=== PATIENT | male | born 1955 | race Caucasian/White ===

== ENCOUNTER 2017-06-09 16:51 | Inpatient (IN) | payer OTHER ==
[~2017-06-09] VITALS: Ht 175.2 cm; Wt 102.3 kg
--- NOTE | ~2017-06-09 | WRIGHTHP ---
[place], [place] PATIENT HISTORY AND PHYSICAL EXAM NAME: AUBREY YOU [facility] #: [id number] UNIT #: [id number] ROOM: 407 DOCTOR: BLAIR OLIVO MD BIRTHDATE: [birth year] DOS: 06/09/2017 HISTORY OF PRESENT ILLNESS: The patient is a 61-year-old gentleman with past medical history of: 1. COPD. 2. Benign essential hypertension. 3. POLLEN allergies. 4. Generalized anxiety disorder. 5. History of smoking 60 pack years. 6. Coronary artery disease of the [place] vessels with acute MD in March 2009. 7. GERD and esophagitis. 8. History of major depression, chronic, recurrent. The patient presented to the Emergency Department with increasing shortness of breath, cough, chest congestion, wheezing. In the ER, the patient was found to have acute exacerbation of COPD and was recommended for admission and further management. After admission, the patient says his breathing is improving with present treatment, but he still has persistent cough. REVIEW OF SYSTEMS: LUNGS: Increased shortness of breath, wheezing and cough. HEART SYSTEM: No chest pain. No palpitations. GASTROINTESTINAL: No nausea, vomiting, diarrhea or constipation. FAMILY HISTORY: Noncontributory. HOME MEDICATIONS: Loratadine, vitamin D, buspirone, Colace, verapamil. ALLERGIES: No known drug allergies. PHYSICAL EXAMINATION: GENERAL: Alert, oriented x 3, in no visible distress. HEENT AND NECK: Extraocular movements are intact. Sclerae are anicteric. Oral mucosa is moist and clean. No obvious facial weakness. Neck is supple without any lymphadenopathy. No thyromegaly. No JVD. No carotid arterial bruits. LUNGS: Decreased breath sounds all over, slight expiratory wheezing. CARDIOVASCULAR SYSTEM: Heart rate is regular in rate and rhythm. S1 and S2 normally audible. No significant murmur or any other abnormal cardiac sounds. ABDOMEN: Soft, nontender. No obvious organomegaly. Bowel sounds are present. No obvious herniation. EXTREMITIES: Without significant cyanosis or edema. Warm to touch. CENTRAL NERVOUS SYSTEM: Alert and oriented x 3. Cranial nerves II-XII are intact. Speech is normal. The patient is able to move all extremities. Normal muscle strength. Deep tendon reflexes are equal on both sides. Plantars were downgoing. LABORATORY DATA: White cell count of 3200, otherwise normal CBC and platelets. Normal bilirubin, liver enzymes. Chest x-ray without any acute abnormality. [place], [place] PATIENT HISTORY AND PHYSICAL EXAM [facility] [id number] UNIT #: [id number] ROOM: 407 DOCTOR: BLAIR OLIVO MD BIRTHDATE: [birth year] IMPRESSION AND PLAN: 1. The patient with acute exacerbation of significant underlying chronic obstructive pulmonary disease, to be treated with bronchodilators, oxygen, corticosteroids. The patient's breathing is already improving. He still has significant cough. 2. Generalized anxiety disorder, treated with buspirone. 3. Major depression, recurrent, mild, treated and controlled. 4. Benign essential hypertension, treated and controlled. 5. POLLEN allergies, treated with loratadine. 6. Chronic constipation, treated with Colace. BLAIR OLIVO MD CM:HISPHYS:PATIENT HISTORY AND PHYSICAL EXAMINATION 22 99 BLAIR OLIVO MD 06/10/171958 interface
--- NOTE | ~2017-06-09 | DS ---
[place], [place] DISCHARGE SUMMARY NAME: AUBREY YOU UNIT #: [id number] ROOM: 407 DOCTOR: BLAIR OLIVO MD BIRTHDATE: [birth year] DOS: 06/11/2017 DISCHARGE DIAGNOSES: 1. Acute exacerbation of chronic obstructive pulmonary disease, improved with treatment. 2. Generalized anxiety disorder. 3. Major depression, recurrent, mild. 4. Benign essential hypertension. 5. Pollen allergies. 6. Chronic constipation. 7. Gastroesophageal reflux disease and esophagitis. 8. History of coronary artery disease of [place] vessels with history of acute myocardial infarction in 03/2009. 9. History of smoking 60 pack years in the past. 10. Benign essential hypertension. HOSPITAL COURSE: 1. The patient presented to the Emergency Department at [facility] with increasing shortness of breath, chest congestion, cough and wheezing and he was found to have acute exacerbation of COPD and tachypnea and he was admitted and treated with corticosteroids, oxygen, antibiotics and DuoNeb. The patient's breathing has improved and he is doing well and will be discharged to home today. The patient's pulse oximetry was monitored. His breathing rate has improved and he is not wheezing anymore. The patient is being discharged to home on Medrol Dosepak. 2. Chronic constipation, treated with Colace. The patient is moving his bowels. 3. Benign essential hypertension, treated and controlled. 4. Major depression, recurrent, mild, is well controlled. He does not feel depressed. 5. Generalized anxiety disorder for which he takes buspirone as needed, well controlled. LABORATORY DATA: Blood cultures negative. CBC normal, PT, PTT baseline. DISCHARGE MANAGEMENT: Verapamil extended release 360 mg a day, loratadine 10 mg a day, Medrol Dosepak, Colace 200 mg at bedtime, Cymbalta twice a day, buspirone 5 mg t.i.d. p.r.n. for anxiety. [place], [place] DISCHARGE SUMMARY NAME: AUBREY YOU UNIT #: [id number] ROOM: 407 DOCTOR: BLAIR OLIVO MD BIRTHDATE: [birth year] BLAIR OLIVO MD CM:HUA [id number] BLAIR OLIVO MD 06/11/17 1723 interface
[~2017-06-09 16:51] MED LIST: AMLODIPINE BESY1 TAB PO; AMLODIPINE5 MG PO; ANAPROX DS550 MG PO; AUGMENTIN 875875 MG PO; BACTRIM DS 8001 TA1 PO; BACTROBAN CREAM15 GM T; BUSPAR15 MG PO; BUSPAR5 MG PO; CLARITIN10 MG PO; CLINDAMYCIN HC300 MG PO; CLONIDINE HCL0.3 MG PO; DAYPRO600 M1 PO; DOK COLACE100 MG PO; DOXYCYCLINE MO100 MG PO; FIORICET 325 MG1 TAB PO; FLEXERIL5 MG PO; Fioricet 325 MG1 TAB PO; HYDROCHLOROTHIAZIDE PO; HYDROCODONE BIT1 T11 PO; INDERAL LA160 MG PO; INDERAL60 MG PO; KEFLEX500 MG PO; LEVOFLOXACIN500 MG PO; LISINOPRIL20 MG PO; MOTRIN600 MG PO; MOTRIN800 MG PO; NKHM; NORVASC10 MG PO; PROPRANOLOL HC160 MG PO; PROPRANOLOL HY160 MG PO; PROPRANOLOL HYD80 M1 PO; PROPRANOLOL PO; ROBAXIN500 MG PO; ROBAXIN750 MG PO; TESSALON PERLE100 M1 PO; TRAMADOL HCL50 MG PO; VERAPAMIL HCL180 M1 PO; VICODIN 5/500 505 MG PO; VITAMIN D32000 UNIT PO
[2017-06-09 16:57] VITALS: BP 154/93
[2017-06-09 17:59] LABS: BASO % 0.7 % (0.0-1.0); EOS # 0.1 10*3/uL (0.0-0.4); EOS % 1.6 % (1.0-4.0); HEMATOCRIT 45.3 % (42.0-52.0); HEMOGLOBIN 15.5 g/dl (14.0-18.0); LYMPH # 1.1 10*3/uL (1.3-4.4); LYMPH % 20.9 % (27.0-41.0); MEAN CELL VOLUME 87.3 fl (80.0-94.0); MEAN CORPUSCULAR HGB 29.9 pg (27.0-31.0); MEAN CORPUSCULAR HGB CONC 34.2 g/dl (33.0-37.0); MEAN PLATELET VOLUME 10.8 fl (9.6-12.3); MONO # 0.6 10*3/uL (0.1-1.0); MONO % 11.7 % (3.0-9.0); NEUT # 3.5 10*3/uL (2.3-7.9); NEUT % 64.7 % (47.0-73.0); PLATELET COUNT AUTOMATED 209 10*3/uL (130-400); RED BLOOD COUNT 5.19 10*6/uL (4.50-5.90); RED CELL DISTRI WIDTH 14.2 % (0-14.5); WHITE BLOOD COUNT 5.5 10*3/uL (4.8-10.8)
[2017-06-09 18:17] LABS: ALKALINE PHOSPHATASE 119 U/L (45-117); BUN 13 mg/dl (7-24); CHLORIDE 102 mmol/L (98-107); CREATININE 1.26 mg/dL (0.70-1.30); POTASSIUM 3.7 mmol/L (3.5-5.1); SGOT/AST 25 IU/L (3-35); SGPT/ALT 26 U/L (12-78); SODIUM 137 mmol/L (136-145); TOTAL PROTEIN 7.7 gm/dL (6.4-8.2)
[2017-06-09 18:21] LABS: TROPONIN I < 0.015 ng/ml (<0.045)
[2017-06-09 18:24] LABS: THYROID STIM HORMONE (HS) 0.991 uIU/ml (0.358-4.75)
[2017-06-09 20:57] VITALS: BP 161/95
[2017-06-09 21:15] VITALS: BP 167/78
[2017-06-10] VITALS: BP 152/70
[2017-06-10 06:50] LABS: BASO % 0.3 % (0.0-1.0); HEMATOCRIT 46.2 % (42.0-52.0); HEMOGLOBIN 15.6 g/dl (14.0-18.0); LYMPH # 0.3 10*3/uL (1.3-4.4); LYMPH % 10.7 % (27.0-41.0); MEAN CELL VOLUME 87.8 fl (80.0-94.0); MEAN CORPUSCULAR HGB 29.7 pg (27.0-31.0); MEAN CORPUSCULAR HGB CONC 33.8 g/dl (33.0-37.0); MEAN PLATELET VOLUME 10.1 fl (9.6-12.3); MONO # 0.1 10*3/uL (0.1-1.0); MONO % 1.6 % (3.0-9.0); NEUT # 2.8 10*3/uL (2.3-7.9); NEUT % 87.1 % (47.0-73.0); PLATELET COUNT AUTOMATED 205 10*3/uL (130-400); RED BLOOD COUNT 5.26 10*6/uL (4.50-5.90); RED CELL DISTRI WIDTH 13.9 % (0-14.5); WHITE BLOOD COUNT 3.2 10*3/uL (4.8-10.8)
[2017-06-10 08:00] VITALS: BP 167/82
[2017-06-10 16:54] VITALS: BP 118/51
[2017-06-10 20:00] VITALS: BP 140/62
[2017-06-11] VITALS: BP 142/56
[2017-06-11 08:00] VITALS: BP 127/71
[2017-06-11] MEDS ORDERED: MEDROL DOSEPAK4 MG PO (15:38)
[2017-06-11] MEDS ORDERED: BREO ELLIPTA 11 EACH INH (16:01)
== END 2017-06-11 15:57 | disposition home or self-care (01) | DRG 191 ==
LOC: ED 16:51 → EDHOLD 18:50 → 4E 19:43
PROVIDERS: Internal Medicine
DX: J44.1 Chronic obstructive pulmonary disease with (acute) exacerbation (principal); F33.0 Major depressive disorder, recurrent, mild; F41.1 Generalized anxiety disorder; I10 Essential (primary) hypertension; K59.09 Other constipation; K21.0 Gastro-esophageal reflux disease with esophagitis; I25.10 Atherosclerotic heart disease of native coronary artery without angina pectoris; Z91.048 Other nonmedicinal substance allergy status; I25.2 Old myocardial infarction; Z87.891 Personal history of nicotine dependence; Z79.899 Other long term (current) drug therapy; Z90.49 Acquired absence of other specified parts of digestive tract; Z82.49 Family history of ischemic heart disease and other diseases of the circulatory system; Z82.3 Family history of stroke

== ENCOUNTER 2017-08-18 09:55 | Emergency (ER) | payer OTHER ==
[~2017-08-18] VITALS: Ht 175.2 cm; Wt 99.8 kg
[~2017-08-18 09:55] MED LIST changes: +BREO ELLIPTA 11 EACH INH; +MEDROL DOSEPAK4 MG PO
[2017-08-18 09:56] VITALS: BP 169/98
[2017-08-18] MEDS ORDERED: NAPROSYN500 MG PO (10:02)
[2017-08-18] MEDS ORDERED: KEFLEX500 M1 PO (10:02)
[2017-08-18] MEDS ORDERED: SEPTDS PO (10:02)
== END 2017-08-18 11:11 | disposition home or self-care (01) ==
LOC: ED 09:55
DX: L03.114 Cellulitis of left upper limb (principal); R03.0 Elevated blood-pressure reading, without diagnosis of hypertension; Z79.899 Other long term (current) drug therapy

== ENCOUNTER 2017-10-12 09:45 | Emergency (ER) | payer OTHER ==
[~2017-10-12] VITALS: Wt 99.8 kg
[~2017-10-12 09:45] MED LIST changes: +KEFLEX500 M1 PO; +NAPROSYN500 MG PO; +SEPTDS PO
[2017-10-12 10:01] VITALS: BP 150/90
[2017-10-12] MEDS ORDERED: VIBRAMYCIN100 MG PO (10:03)
[2017-10-12] MEDS ORDERED: IBUPROFEN600 MG PO (10:03)
[2018-01-09] MEDS ORDERED: NAPROSYN500 MG PO (05:52)
== END 2017-10-12 10:09 | disposition home or self-care (01) ==
LOC: ED 09:45
DX: L02.212 Cutaneous abscess of back [any part, except buttock and flank] (principal); L03.312 Cellulitis of back [any part except buttock and flank]

== ENCOUNTER 2017-12-03 16:40 | Inpatient (IN) | payer OTHER ==
[~2017-12-03] VITALS: Ht 175.3 cm; Wt 96.6 kg
--- NOTE | ~2017-12-03 | EKG ---
[place], [place] ELECTROCARDIOGRAM REPORT NAME: AUBREY YOU UNIT #: [id number] ROOM: [facility] DOCTOR: CASE DRAFT REPORT BIRTHDATE: [birth year] [facility] Test Date: 2017-12-03 Test Time: 22:39:58 Pat Name: AUBREY YOU Department: Room: [facility] Gender: M Band Lining Bander: Aurea Cunningham : 1955 Requested By: IRIS MANCILLA Order Number: [id number] Reading MD: Durga Abdalla MD Measurements Intervals [place] Rate: 87 P: 51 RI: 166 QRS: 47 QRSD: 101 T: 46 QT: 403 QTc: 485 Interpretive Statements Sinus rhythm Minimal ST elevation, anterior leads Borderline prolonged QT interval Electronically Signed On 12-04-2017 8:06:39 PDT by Durga Abdalla MD CM:EKGRPT:ELECTROCARDIOGRAM REPORT [id number] IRIS WILLOUGHBY DRAFT REPORT IRIS MANCILLA MD
--- NOTE | ~2017-12-03 | EKG ---
[place], [place] ELECTROCARDIOGRAM REPORT NAME: AUBREY YOU UNIT #: [id number] ROOM: [facility] DOCTOR: CASE DRAFT REPORT BIRTHDATE: [birth year] [facility] Test Date: 2017-12-03 Test Time: 16:44:00 Pat Name: AUBREY YOU Department: Room: [facility] Gender: M City Wellness Coordinator: Rosalba Acevedo : 1955 Requested By: IRIS MANCILLA Order Number: [id number] Reading MD: Durga Abdalla MD Measurements Intervals [place] Rate: 109 P: 56 [place]: 156 QRS: 56 QRSD: 97 T: 58 QT: 360 QTc: 485 Interpretive Statements Sinus tachycardia Borderline prolonged QT interval Electronically Signed On 12-04-2017 8:05:45 PDT by Durga Abdalla MD CM:EKGRPT:ELECTROCARDIOGRAM REPORT [id number] IRIS WILLOUGHBY DRAFT REPORT IRIS MANCILLA MD
--- NOTE | ~2017-12-03 | EKG ---
[place], [place] ELECTROCARDIOGRAM REPORT NAME: AUBREY YOU UNIT #: [id number] ROOM: [facility] DOCTOR: CASE DRAFT REPORT BIRTHDATE: [birth year] [facility] Test Date: 2017-12-03 Test Time: 19:49:04 Pat Name: AUBREY YOU Department: Room: 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
--- NOTE | ~2017-12-03 | EKG ---
[place], [place] ELECTROCARDIOGRAM REPORT NAME: AUBREY YOU UNIT #: [id number] ROOM: [facility] DOCTOR: CASE DRAFT REPORT BIRTHDATE: [birth year] [facility] Test Date: 2017-12-04 Test Time: 13:46:33 Pat Name: AUBREY YOU Department: Room: [facility] 1 Gender: M Associate Director Career Services: Nicki Matthew : 1955 Requested By: DONA GOMES Order Number: [id number] Reading MD: George Preston MD Measurements Intervals [place] Rate: 99 P: 49 MD: 166 QRS: 64 QRSD: 99 T: 45 QT: 391 QTc: 502 Interpretive Statements Sinus rhythm Probable left ventricular hypertrophy Prolonged QT interval Baseline wander in lead(s) V2 Compared to ECG 12/03/2017 22:39:58 ST (T wave) deviation still present No significant change Electronically Signed On 12-04-2017 18:47:43 PDT by George Preston MD CM:EKGRPT:ELECTROCARDIOGRAM REPORT [id number] DONA LEONG DRAFT REPORT DONA GOMES DO
[~2017-12-03 16:40] MED LIST changes: +IBUPROFEN600 MG PO; +VIBRAMYCIN100 MG PO
[2017-12-03 16:55] LABS: BASO # 0.1 10*3/uL (0.0-0.1); EOS # 0.2 10*3/uL (0.0-0.4); EOS % 2.7 % (1.0-4.0); HEMATOCRIT 46.1 % (42.0-52.0); HEMOGLOBIN 15.5 g/dl (14.0-18.0); LYMPH # 1.6 10*3/uL (1.3-4.4); LYMPH % 25.3 % (27.0-41.0); MEAN CELL VOLUME 88.8 fl (80.0-94.0); MEAN CORPUSCULAR HGB 29.9 pg (27.0-31.0); MEAN CORPUSCULAR HGB CONC 33.6 g/dl (33.0-37.0); MEAN PLATELET VOLUME 10.8 fl (9.6-12.3); MONO # 0.5 10*3/uL (0.1-1.0); MONO % 8.6 % (3.0-9.0); NEUT # 3.9 10*3/uL (2.3-7.9); NEUT % 61.9 % (47.0-73.0); PLATELET COUNT AUTOMATED 238 10*3/uL (130-400); RED BLOOD COUNT 5.19 10*6/uL (4.50-5.90); RED CELL DISTRI WIDTH 14.4 % (0-14.5); WHITE BLOOD COUNT 6.3 10*3/uL (4.8-10.8)
[2017-12-03 17:00] VITALS: BP 186/98
[2017-12-03 17:05] LABS: ACT PARTIAL THROMBO TIME 25.3 SECONDS (20.8-31.5)
[2017-12-03 17:18] LABS: ALKALINE PHOSPHATASE 103 U/L (45-117); BUN 9 mg/dl (7-24); CHLORIDE 108 mmol/L (98-107); CREATININE 1.16 mg/dL (0.70-1.30); POTASSIUM 4.1 mmol/L (3.5-5.1); SGOT/AST 14 IU/L (3-35); SGPT/ALT 27 U/L (12-78); SODIUM 142 mmol/L (136-145); TOTAL PROTEIN 7.4 gm/dL (6.4-8.2)
[2017-12-03 17:20] LABS: TROPONIN I < 0.015 ng/ml (<0.045)
[2017-12-03 17:22] VITALS: BP 162/99
[2017-12-03 17:35] VITALS: BP 164/97
[2017-12-03 18:10] VITALS: BP 155/97
[2017-12-03] MEDS ORDERED: LIPITOR20 MG PO (18:42)
[2017-12-03] MEDS ORDERED: LISINOPRIL2.5 MG PO (18:44)
[2017-12-03] MEDS ORDERED: ASPIRIN LOW DOS81 MG PO (18:44)
[2017-12-03] MEDS ORDERED: Lopressor25 MG PO (18:45)
[2017-12-03 20:00] VITALS: BP 167/101
[2017-12-04] VITALS: BP 153/92
[2017-12-04 02:59] LABS: BILIRUBIN NEGATIVE (NEGATIVE); BLOOD NEGATIVE (NEGATIVE); CLARITY CLEAR (CLEAR); COLOR YELLOW (YELLOW); GLUCOSE NEGATIVE (NEGATIVE); KETONE NEGATIVE (NEGATIVE); LEUKO ESTERASE NEGATIVE (NEGATIVE); NITRITE NEGATIVE (NEGATIVE); SPECIFIC GRAVITY 1.015 (1.005-1.030); UROBILINOGEN 0.2 E.U./dl (0.2-1.0)
[2017-12-04 03:09] LABS: RBC 0-2 rbc/hpf (0-2); WBC 0-2 wbc/hpf (0-5)
[2017-12-04 06:53] LABS: BASO # 0.1 10*3/uL (0.0-0.1); BASO % 0.9 % (0.0-1.0); EOS # 0.1 10*3/uL (0.0-0.4); EOS % 1.7 % (1.0-4.0); HEMATOCRIT 47.4 % (42.0-52.0); HEMOGLOBIN 15.8 g/dl (14.0-18.0); LYMPH # 1.2 10*3/uL (1.3-4.4); LYMPH % 17.6 % (27.0-41.0); MEAN CELL VOLUME 89.8 fl (80.0-94.0); MEAN CORPUSCULAR HGB 29.9 pg (27.0-31.0); MEAN CORPUSCULAR HGB CONC 33.3 g/dl (33.0-37.0); MEAN PLATELET VOLUME 11.3 fl (9.6-12.3); MONO # 0.5 10*3/uL (0.1-1.0); MONO % 7.6 % (3.0-9.0); NEUT # 4.7 10*3/uL (2.3-7.9); NEUT % 71.9 % (47.0-73.0); PLATELET COUNT AUTOMATED 227 10*3/uL (130-400); RED BLOOD COUNT 5.28 10*6/uL (4.50-5.90); RED CELL DISTRI WIDTH 14.3 % (0-14.5); WHITE BLOOD COUNT 6.6 10*3/uL (4.8-10.8)
[2017-12-04 07:20] LABS: ALBUMIN 3.8 gm/dl (3.1-4.5); BUN 9 mg/dl (7-24); CHLORIDE 108 mmol/L (98-107); HDL CHOLESTEROL 44 mg/dl (40-60); POTASSIUM 3.7 mmol/L (3.5-5.1); SODIUM 140 mmol/L (136-145)
[2017-12-04 07:26] LABS: ALKALINE PHOSPHATASE 109 U/L (45-117); CHOLESTEROL 167 mg/dL (<200); CREATININE 1.02 mg/dL (0.70-1.30); FREE T4 1.01 ng/dl (0.76-1.46); LDL CHOLESTEROL 95 mg/dL (9-159); PHOSPHOROUS 2.7 mg/dL (2.5-4.9); SGOT/AST 15 IU/L (3-35); SGPT/ALT 22 U/L (12-78); TOTAL PROTEIN 7.1 gm/dL (6.4-8.2); TRIGLYCERIDES 138 mg/dl (<150); VLDL CHOLESTEROL 28 mg/dL (6-40)
[2017-12-04 07:39] LABS: VITAMIN D, 25-HYDROXY 36.7 ng/mL (30-100)
[2017-12-04 08:00] VITALS: BP 170/98
[2017-12-04 12:00] VITALS: BP 156/98
[2017-12-04 16:00] VITALS: BP 184/117
[2017-12-04 20:00] VITALS: BP 153/83
[2017-12-05] VITALS: BP 147/80
[2017-12-05 06:18] LABS: BASO # 0.1 10*3/uL (0.0-0.1); BASO % 0.8 % (0.0-1.0); EOS # 0.3 10*3/uL (0.0-0.4); EOS % 4.1 % (1.0-4.0); HEMATOCRIT 46.3 % (42.0-52.0); HEMOGLOBIN 15.3 g/dl (14.0-18.0); LYMPH # 1.1 10*3/uL (1.3-4.4); LYMPH % 18.5 % (27.0-41.0); MEAN CELL VOLUME 90.3 fl (80.0-94.0); MEAN CORPUSCULAR HGB 29.8 pg (27.0-31.0); MEAN PLATELET VOLUME 10.8 fl (9.6-12.3); MONO # 0.5 10*3/uL (0.1-1.0); MONO % 8.3 % (3.0-9.0); NEUT # 4.2 10*3/uL (2.3-7.9); NEUT % 68.1 % (47.0-73.0); PLATELET COUNT AUTOMATED 206 10*3/uL (130-400); RED BLOOD COUNT 5.13 10*6/uL (4.50-5.90); RED CELL DISTRI WIDTH 14.4 % (0-14.5); WHITE BLOOD COUNT 6.1 10*3/uL (4.8-10.8)
[2017-12-05 06:35] LABS: BUN 15 mg/dl (7-24); CHLORIDE 106 mmol/L (98-107); POTASSIUM 4.2 mmol/L (3.5-5.1); SODIUM 140 mmol/L (136-145)
[2017-12-05 08:00] VITALS: BP 140/70; BP 179/103
[2017-12-05 12:59] VITALS: BP 152/88; BP 160/102
[2017-12-05 16:00] VITALS: BP 172/88
[2017-12-05 20:00] VITALS: BP 152/81
[2017-12-06] VITALS: BP 160/87
[2017-12-06 06:27] LABS: BASO # 0.1 10*3/uL (0.0-0.1); BASO % 0.8 % (0.0-1.0); EOS # 0.3 10*3/uL (0.0-0.4); EOS % 3.9 % (1.0-4.0); HEMATOCRIT 44.1 % (42.0-52.0); HEMOGLOBIN 14.5 g/dl (14.0-18.0); LYMPH # 1.3 10*3/uL (1.3-4.4); LYMPH % 19.4 % (27.0-41.0); MEAN CELL VOLUME 89.5 fl (80.0-94.0); MEAN CORPUSCULAR HGB 29.4 pg (27.0-31.0); MEAN CORPUSCULAR HGB CONC 32.9 g/dl (33.0-37.0); MONO # 0.6 10*3/uL (0.1-1.0); MONO % 8.5 % (3.0-9.0); NEUT # 4.3 10*3/uL (2.3-7.9); NEUT % 67.1 % (47.0-73.0); PLATELET COUNT AUTOMATED 210 10*3/uL (130-400); RED BLOOD COUNT 4.93 10*6/uL (4.50-5.90); RED CELL DISTRI WIDTH 14.3 % (0-14.5); WHITE BLOOD COUNT 6.4 10*3/uL (4.8-10.8)
[2017-12-06 06:35] LABS: ALBUMIN 3.3 gm/dl (3.1-4.5); ALKALINE PHOSPHATASE 96 U/L (45-117); BUN 18 mg/dl (7-24); CHLORIDE 109 mmol/L (98-107); POTASSIUM 3.9 mmol/L (3.5-5.1); SGOT/AST 14 IU/L (3-35); SODIUM 143 mmol/L (136-145); TOTAL PROTEIN 6.6 gm/dL (6.4-8.2)
[2017-12-06 06:38] LABS: CREATININE 1.14 mg/dL (0.70-1.30); SGPT/ALT 17 U/L (12-78)
[2017-12-06 13:26] VITALS: BP 159/89
[2017-12-06] MEDS ORDERED: AVPAK AZITHROM250 MG PO (15:37)
[2017-12-06] MEDS ORDERED: MUCINEX ER600 MG PO (15:37)
[2017-12-06] MEDS ORDERED: LISINOPRIL5 MG PO (15:37)
[2017-12-06 16:00] VITALS: BP 170/60
[2018-01-09] MEDS ORDERED: NAPROSYN500 MG PO (05:52)
== END 2017-12-06 17:52 | disposition home or self-care (01) | DRG 871 ==
LOC: ED 16:40 → 5E 17:28 → EDHOLD 17:28 → 5E 17:44
PROVIDERS: Emergency Medicine; Internal Medicine; Student in an Organized Health Care Education/Training Program
DX: A41.9 Sepsis, unspecified organism (principal); J18.1 Lobar pneumonia, unspecified organism; R73.9 Hyperglycemia, unspecified; E83.41 Hypermagnesemia; E80.6 Other disorders of bilirubin metabolism; I25.10 Atherosclerotic heart disease of native coronary artery without angina pectoris; I10 Essential (primary) hypertension; Z90.49 Acquired absence of other specified parts of digestive tract; Z82.49 Family history of ischemic heart disease and other diseases of the circulatory system; Z82.3 Family history of stroke; J44.9 Chronic obstructive pulmonary disease, unspecified; I25.2 Old myocardial infarction; Z87.891 Personal history of nicotine dependence; Z80.3 Family history of malignant neoplasm of breast

== ENCOUNTER → 2018-01-09 | Outpatient (CLI) | payer OTHER ==
[~2018-01-09] MED LIST changes: +ASPIRIN LOW DOS81 MG PO; +AVPAK AZITHROM250 MG PO; +LIPITOR20 MG PO; +LISINOPRIL2.5 MG PO; +LISINOPRIL5 MG PO; +Lopressor25 MG PO; +MUCINEX ER600 MG PO
--- NOTE | ~2018-01-09 | ST ---
[place], [place] EXERCISE STRESS TEST REPORT [id number] UN[facility] #: [id number] ROOM: DOCTOR: MILTON AGUIRRE MD BIRTHDATE: [birth year] DOS: 01/09/2018 LEXISCAN PORTION OF THE LEXISCAN CARDIOLITE A 0.4 mg Lexiscan, duration of 10 seconds. Baseline cardiogram sinus rhythm with nonspecific ST-T changes. Lexiscan, the patient had no chest discomfort. Blood pressure and heart rate response was normal. Nuclear images will be reported separately. MILTON AGUIRRE MD CM:STRESS:EXERCISE STRESS TEST REPORT [id number] MILTON AGUIRRE MD
== END | disposition home or self-care (01) ==
LOC: CARD 05:34
DX: I20.9 Angina pectoris, unspecified (principal)

== ENCOUNTER → 2019-02-26 | Outpatient (CLI) | payer OTHER ==
[~2019-02-26] MED LIST changes: +ATORVASTATIN CA20 M1 PO; +CYCLOBENZAPRINE10 MG PO; +HYDR25T PO; +LEXAPRO20 MG PO; +ZESTRIL40 MG PO
[2019-02-26 14:45] LABS: BASO # 0.1 10*3/uL (0.0-0.1); BASO % 1.1 % (0.0-1.0); EOS # 0.1 10*3/uL (0.0-0.4); EOS % 1.6 % (1.0-4.0); HEMOGLOBIN 17.1 g/dl (14.0-18.0); LYMPH # 1.3 10*3/uL (1.3-4.4); LYMPH % 21.9 % (27.0-41.0); MEAN CELL VOLUME 94.6 fl (80.0-94.0); MEAN CORPUSCULAR HGB 31.7 pg (27.0-31.0); MEAN CORPUSCULAR HGB CONC 33.5 g/dl (33.0-37.0); MONO # 0.6 10*3/uL (0.1-1.0); MONO % 10.3 % (3.0-9.0); NEUT # 3.7 10*3/uL (2.3-7.9); NEUT % 64.7 % (47.0-73.0); PLATELET COUNT AUTOMATED 204 10*3/uL (130-400); RED BLOOD COUNT 5.39 10*6/uL (4.50-5.90); RETICULOCYTE % 1.37 % (0.50-2.50); WHITE BLOOD COUNT 5.7 10*3/uL (4.8-10.8)
[2019-02-26 14:50] LABS: BILIRUBIN NEGATIVE (NEGATIVE); BLOOD NEGATIVE (NEGATIVE); CLARITY CLEAR (CLEAR); COLOR YELLOW (YELLOW); GLUCOSE NEGATIVE (NEGATIVE); KETONE NEGATIVE (NEGATIVE); LEUKO ESTERASE NEGATIVE (NEGATIVE); NITRITE NEGATIVE (NEGATIVE); SPECIFIC GRAVITY <= 1.005 (1.005-1.030); UROBILINOGEN 0.2 E.U./dl (0.2-1.0)
[2019-02-26 15:02] LABS: RBC 0-2 rbc/hpf (0-2); WBC 0-2 wbc/hpf (0-5)
[2019-02-26 15:14] LABS: ALBUMIN 4.3 gm/dl (3.1-4.5); BUN 14 mg/dl (7-24); CHLORIDE 103 mmol/L (98-107); CHOLESTEROL 159 mg/dL (<200); CREATININE 1.26 mg/dL (0.70-1.30); GAMMA GLUTAMYL TRANSPEPTIDASE 32 U/L (15-85); HDL CHOLESTEROL 51 mg/dl (40-60); IRON 108 ug/dL (65-175); LDL CHOLESTEROL 66 mg/dL (9-159); POTASSIUM 3.6 mmol/L (3.5-5.1); SGOT/AST 18 IU/L (3-35); SGPT/ALT 34 U/L (12-78); SODIUM 138 mmol/L (136-145); TOTAL IRON BINDING CAPACITY 381 ug/dl (250-450); TRIGLYCERIDES 210 mg/dl (<150); VLDL CHOLESTEROL 42 mg/dL (6-40)
[2019-02-26 15:21] LABS: ALKALINE PHOSPHATASE 106 U/L (45-117); CPK 117 U/L (39-308); TOTAL PROTEIN 7.6 gm/dL (6.4-8.2); VITAMIN D, 25-HYDROXY 37.3 ng/mL (30-100)
[2019-02-26 15:22] LABS: FERRITIN 47.2 ng/mL (22.0-322.0)
== END | disposition home or self-care (01) ==
LOC: LAB 14:14
PROVIDERS: Family Medicine
DX: R79.89 Other specified abnormal findings of blood chemistry (principal); R53.83 Other fatigue; E78.5 Hyperlipidemia, unspecified; E55.9 Vitamin D deficiency, unspecified

== ENCOUNTER 2019-09-22 19:56 | Observation (INO) | payer OTHER ==
[~2019-09-22] VITALS: Ht 175.2 cm; Wt 101.8 kg
[2019-09-22 20:07] VITALS: BP 165/78
[2019-09-22 20:22] LABS: BASO # 0.1 10*3/uL (0.0-0.1); BASO % 0.9 % (0.0-1.0); EOS # 0.1 10*3/uL (0.0-0.4); HEMATOCRIT 47.4 % (42.0-52.0); LYMPH % 28.7 % (27.0-41.0); MEAN CORPUSCULAR HGB 31.7 pg (27.0-31.0); MEAN CORPUSCULAR HGB CONC 33.3 g/dl (33.0-37.0); MEAN PLATELET VOLUME 10.4 fl (9.6-12.3); MONO # 0.7 10*3/uL (0.1-1.0); MONO % 9.7 % (3.0-9.0); NEUT # 4.1 10*3/uL (2.3-7.9); NEUT % 58.4 % (47.0-73.0); PLATELET COUNT AUTOMATED 210 10*3/uL (130-400); RED BLOOD COUNT 4.99 10*6/uL (4.50-5.90)
[2019-09-22 20:32] LABS: ACT PARTIAL THROMBO TIME 28.5 SECONDS (20.0-32.1)
[2019-09-22 20:41] LABS: ALBUMIN 3.8 gm/dl (3.1-4.5); ALKALINE PHOSPHATASE 133 U/L (45-117); BUN 17 mg/dl (7-24); CHLORIDE 105 mmol/L (98-107); CREATININE 1.24 mg/dL (0.70-1.30); POTASSIUM 3.5 mmol/L (3.5-5.1); SGOT/AST 26 IU/L (3-35); SGPT/ALT 34 U/L (12-78); SODIUM 141 mmol/L (136-145); TOTAL PROTEIN 7.2 gm/dL (6.4-8.2); TROPONIN I < 0.015 ng/ml (<0.045)
[2019-09-22 21:09] VITALS: BP 156/72
[2019-09-22 21:21] VITALS: BP 142/68
[2019-09-22 23:05] VITALS: BP 168/94
[2019-09-22] MEDS ORDERED: ATORVASTATIN CA40 M1 PO (23:21)
[2019-09-22] MEDS ORDERED: ZESTRIL,PRINIVIL5 MG PO (23:25)
[2019-09-23 01:14] VITALS: BP 152/75
[2019-09-23 06:20] LABS: BASO % 0.8 % (0.0-1.0); EOS # 0.1 10*3/uL (0.0-0.4); EOS % 2.3 % (1.0-4.0); HEMATOCRIT 46.1 % (42.0-52.0); LYMPH # 1.2 10*3/uL (1.3-4.4); LYMPH % 23.3 % (27.0-41.0); MEAN CELL VOLUME 96.8 fl (80.0-94.0); MEAN CORPUSCULAR HGB 32.4 pg (27.0-31.0); MEAN CORPUSCULAR HGB CONC 33.4 g/dl (33.0-37.0); MEAN PLATELET VOLUME 10.3 fl (9.6-12.3); MONO # 0.6 10*3/uL (0.1-1.0); MONO % 11.1 % (3.0-9.0); NEUT # 3.3 10*3/uL (2.3-7.9); NEUT % 62.1 % (47.0-73.0); PLATELET COUNT AUTOMATED 164 10*3/uL (130-400); RED BLOOD COUNT 4.76 10*6/uL (4.50-5.90); RED CELL DISTRI WIDTH 14.3 % (0-14.5); WHITE BLOOD COUNT 5.2 10*3/uL (4.8-10.8)
[2019-09-23 06:34] LABS: BUN 19 mg/dl (7-24); CHLORIDE 107 mmol/L (98-107); CREATININE 1.16 mg/dL (0.70-1.30); SODIUM 141 mmol/L (136-145)
[2019-09-23 08:00] VITALS: BP 132/63
[2019-09-23 16:00] VITALS: BP 152/68
[2019-09-23 20:00] VITALS: BP 142/72
[2019-09-24] VITALS: BP 139/70
[2019-09-24 08:00] VITALS: BP 156/72
== END 2019-09-24 11:05 | disposition home or self-care (01) ==
LOC: ED 19:56 → EDHOLD 22:36 → 4E 22:36
PROVIDERS: Emergency Medicine; Internal Medicine; ADMIT Emergency Medicine
DX: R07.89 Other chest pain (principal); I25.10 Atherosclerotic heart disease of native coronary artery without angina pectoris; I10 Essential (primary) hypertension; J44.9 Chronic obstructive pulmonary disease, unspecified; F41.1 Generalized anxiety disorder; E78.00 Pure hypercholesterolemia, unspecified; F17.210 Nicotine dependence, cigarettes, uncomplicated

== ENCOUNTER → 2020-03-03 | Outpatient (CLI) | payer OTHER ==
[~2020-03-03] MED LIST changes: +ATORVASTATIN CA40 M1 PO; +ZESTRIL,PRINIVIL5 MG PO
[2020-03-03 10:50] LABS: BILIRUBIN Negative (Negative); BLOOD Negative (Negative); CLARITY Clear (Clear); COLOR Yellow (Yellow); GLUCOSE Negative (Negative); KETONE Negative (Negative); LEUKO ESTERASE Negative (Negative); NITRITE Negative (Negative); PH 5.5 (4.5-8.0); SPECIFIC GRAVITY 1.015 (1.001-1.030)
[2020-03-03 11:04] LABS: BASO # 0.1 10*3/uL (0.0-0.1); BASO % 1.2 % (0.0-1.0); EOS # 0.1 10*3/uL (0.0-0.4); EOS % 2.2 % (1.0-4.0); HEMATOCRIT 51.1 % (42.0-52.0); LYMPH # 1.1 10*3/uL (1.3-4.4); LYMPH % 21.1 % (27.0-41.0); MEAN CELL VOLUME 93.9 fl (80.0-94.0); MEAN CORPUSCULAR HGB 30.9 pg (27.0-31.0); MEAN CORPUSCULAR HGB CONC 32.9 g/dl (33.0-37.0); MONO # 0.5 10*3/uL (0.1-1.0); MONO % 10.2 % (3.0-9.0); NEUT # 3.3 10*3/uL (2.3-7.9); NEUT % 64.7 % (47.0-73.0); PLATELET COUNT AUTOMATED 187 10*3/uL (130-400); RED BLOOD COUNT 5.44 10*6/uL (4.50-5.90); RETICULOCYTE % 1.42 % (0.50-2.50); WHITE BLOOD COUNT 5.1 10*3/uL (4.8-10.8)
[2020-03-03 11:13] LABS: ALBUMIN 4.2 gm/dl (3.1-4.5); ALKALINE PHOSPHATASE 116 U/L (45-117); BUN 21 mg/dl (7-24); CHLORIDE 104 mmol/L (98-107); CHOLESTEROL 164 mg/dL (<200); CPK 128 U/L (39-308); CREATININE 1.25 mg/dL (0.70-1.30); GAMMA GLUTAMYL TRANSPEPTIDASE 26 U/L (15-85); HDL CHOLESTEROL 64 mg/dl (40-60); IRON 84 ug/dL (65-175); LDL CHOLESTEROL 70 mg/dL (9-159); POTASSIUM 3.9 mmol/L (3.5-5.1); SGOT/AST 16 IU/L (3-35); SGPT/ALT 31 U/L (12-78); SODIUM 138 mmol/L (136-145); TOTAL IRON BINDING CAPACITY 365 ug/dl (250-450); TOTAL PROTEIN 7.5 gm/dL (6.4-8.2); TRIGLYCERIDES 149 mg/dl (<150); VLDL CHOLESTEROL 30 mg/dL (6-40)
[2020-03-03 12:50] LABS: EPITHELIAL CELLS 0-2; RBC 0-2 rbc/hpf (0-2); WBC 0-2 wbc/hpf (0-5)
[2020-03-03 12:51] LABS: FERRITIN 51.9 ng/mL (22.0-322.0); VITAMIN D, 25-HYDROXY 32.2 ng/mL (30-100)
== END | disposition home or self-care (01) ==
LOC: LAB 10:24
PROVIDERS: ATTEND Family Medicine
DX: E55.9 Vitamin D deficiency, unspecified (principal); R53.83 Other fatigue; E78.5 Hyperlipidemia, unspecified; R79.89 Other specified abnormal findings of blood chemistry

== ENCOUNTER 2020-07-08 10:47 | Emergency (ER) | payer OTHER ==
[~2020-07-08] VITALS: Ht 175.2 cm; Wt 102.1 kg
[2020-07-08 10:53] VITALS: BP 151/90
== END 2020-07-08 12:45 | disposition home or self-care (01) ==
LOC: ED 10:47
DX: S66.912A Strain of unspecified muscle, fascia and tendon at wrist and hand level, left hand, initial encounter (principal); Z79.899 Other long term (current) drug therapy; Z79.82 Long term (current) use of aspirin; Z79.2 Long term (current) use of antibiotics; Z90.49 Acquired absence of other specified parts of digestive tract; Z98.890 Other specified postprocedural states; Z87.891 Personal history of nicotine dependence; W19.XXXA Unspecified fall, initial encounter; Y93.89 Activity, other specified; Y92.89 Other specified places as the place of occurrence of the external cause; Y99.8 Other external cause status

== ENCOUNTER → 2020-07-22 | Outpatient (CLI) | payer OTHER ==
[2020-07-22 09:05] LABS: BASO % 0.7 % (0.0-1.0); EOS # 0.1 10*3/uL (0.0-0.4); EOS % 2.5 % (1.0-4.0); HEMATOCRIT 47.2 % (42.0-52.0); LYMPH # 1.1 10*3/uL (1.3-4.4); LYMPH % 18.7 % (27.0-41.0); MEAN CELL VOLUME 95.2 fl (80.0-94.0); MEAN CORPUSCULAR HGB 31.5 pg (27.0-31.0); MEAN CORPUSCULAR HGB CONC 33.1 g/dl (33.0-37.0); MEAN PLATELET VOLUME 10.2 fl (9.6-12.3); MONO # 0.6 10*3/uL (0.1-1.0); MONO % 9.6 % (3.0-9.0); NEUT # 3.9 10*3/uL (2.3-7.9); PLATELET COUNT AUTOMATED 208 10*3/uL (130-400); RED BLOOD COUNT 4.96 10*6/uL (4.50-5.90); RED CELL DISTRI WIDTH 13.7 % (0-14.5); RETICULOCYTE % 1.36 % (0.50-2.50); WHITE BLOOD COUNT 5.7 10*3/uL (4.8-10.8)
[2020-07-22 09:09] LABS: BILIRUBIN Negative (Negative); BLOOD Negative (Negative); CLARITY Clear (Clear); COLOR Yellow (Yellow); GLUCOSE Negative (Negative); KETONE Negative (Negative); LEUKO ESTERASE Negative (Negative); NITRITE Negative (Negative); PH 5.5 (4.5-8.0)
[2020-07-22 09:34] LABS: ALBUMIN 3.7 gm/dl (3.1-4.5); CREATININE 1.96 mg/dL (0.70-1.30)
[2020-07-22 09:43] LABS: THYROID STIM HORMONE (HS) 1.62 uIU/ml (0.358-4.75); TOTAL PROTEIN 7.5 gm/dL (6.4-8.2)
[2020-07-22 09:45] LABS: BACTERIA 1+
[2020-07-22 10:11] LABS: VITAMIN D, 25-HYDROXY 38.8 ng/mL (30-100)
[2020-07-22 10:12] LABS: FERRITIN 118.9 ng/mL (22.0-322.0)
== END | disposition home or self-care (01) ==
LOC: LAB 08:32
PROVIDERS: ATTEND Family Medicine
DX: E78.5 Hyperlipidemia, unspecified (principal); R79.89 Other specified abnormal findings of blood chemistry; R53.83 Other fatigue; E55.9 Vitamin D deficiency, unspecified; R74.8 Abnormal levels of other serum enzymes

== ENCOUNTER → 2020-12-29 | Outpatient (CLI) | payer OTHER ==
[2020-12-29 16:23] LABS: BASO % 0.6 % (0.0-1.0); EOS # 0.2 10*3/uL (0.0-0.4); EOS % 2.2 % (1.0-4.0); HEMATOCRIT 43.6 % (42.0-52.0); LYMPH # 1.4 10*3/uL (1.3-4.4); LYMPH % 18.6 % (27.0-41.0); MEAN CELL VOLUME 92.4 fl (80.0-94.0); MEAN CORPUSCULAR HGB 31.1 pg (27.0-31.0); MEAN CORPUSCULAR HGB CONC 33.7 g/dl (33.0-37.0); MEAN PLATELET VOLUME 10.7 fl (9.6-12.3); MONO # 0.6 10*3/uL (0.1-1.0); MONO % 7.7 % (3.0-9.0); NEUT # 5.1 10*3/uL (2.3-7.9); NEUT % 70.5 % (47.0-73.0); PLATELET COUNT AUTOMATED 195 10*3/uL (130-400); RED BLOOD COUNT 4.72 10*6/uL (4.50-5.90); RED CELL DISTRI WIDTH 13.3 % (0-14.5); WHITE BLOOD COUNT 7.3 10*3/uL (4.8-10.8)
[2020-12-29 16:26] LABS: BILIRUBIN Negative (Negative); BLOOD Negative (Negative); CLARITY Clear (Clear); COLOR Yellow (Yellow); GLUCOSE Negative (Negative); KETONE Negative (Negative); LEUKO ESTERASE Trace (Negative); NITRITE Negative (Negative); SPECIFIC GRAVITY 1.015 (1.001-1.030); UROBILINOGEN 0.2 E.U./dl (0.0-1.0)
[2020-12-29 16:35] LABS: URINE CREATININE RANDOM 78.8 mg/dL
[2020-12-29 16:37] LABS: BACTERIA TRACE; EPITHELIAL CELLS 0-2; RBC 0-2 rbc/hpf (0-2); WBC 16-20 wbc/hpf (0-5)
[2020-12-29 16:49] LABS: ALBUMIN 3.5 gm/dl (3.1-4.5); CREATININE 1.96 mg/dL (0.70-1.30); POTASSIUM 3.7 mmol/L (3.5-5.1)
[2020-12-29 17:01] LABS: FERRITIN 110.7 ng/mL (22.0-322.0); PTH INTACT 43.3 pg/mL (18.5-88.0); VITAMIN D, 25-HYDROXY 36.9 ng/mL (30-100)
== END | disposition home or self-care (01) ==
LOC: LAB 15:30
PROVIDERS: ATTEND Internal Medicine Nephrology
DX: N18.32 Chronic kidney disease, stage 3b (principal); D63.1 Anemia in chronic kidney disease; N25.81 Secondary hyperparathyroidism of renal origin

== ENCOUNTER 2021-05-01 12:02 | Emergency (ER) | payer OTHER ==
[~2021-05-01] VITALS: Ht 175.2 cm; Wt 97.1 kg
[2021-05-01 12:44] VITALS: BP 132/79
[2021-05-01] MEDS ORDERED: NAPROSYN500 MG PO (12:46)
[2021-05-01] MEDS ORDERED: HYDROCODONE-AC1 EAC1 PO (12:46)
== END 2021-05-01 14:07 | disposition home or self-care (01) ==
LOC: ED 12:02
DX: S46.911A Strain of unspecified muscle, fascia and tendon at shoulder and upper arm level, right arm, initial encounter (principal); F17.200 Nicotine dependence, unspecified, uncomplicated; E78.5 Hyperlipidemia, unspecified; Z79.899 Other long term (current) drug therapy; Z79.82 Long term (current) use of aspirin; Z90.49 Acquired absence of other specified parts of digestive tract; Z87.891 Personal history of nicotine dependence; W17.81XA Fall down embankment (hill), initial encounter; Y93.89 Activity, other specified; Y92.89 Other specified places as the place of occurrence of the external cause; Y99.8 Other external cause status

== ENCOUNTER → 2021-05-03 | Outpatient (CLI) | payer OTHER ==
[~2021-05-03] MED LIST changes: +HYDROCODONE-AC1 EAC1 PO
[2021-05-03 08:10] LABS: BASO # 0.1 10*3/uL (0.0-0.1); BASO % 0.8 % (0.0-1.0); EOS # 0.1 10*3/uL (0.0-0.4); EOS % 1.5 % (1.0-4.0); LYMPH # 1.1 10*3/uL (1.3-4.4); LYMPH % 17.5 % (27.0-41.0); MEAN CELL VOLUME 91.5 fl (80.0-94.0); MEAN CORPUSCULAR HGB CONC 33.9 g/dl (33.0-37.0); MEAN PLATELET VOLUME 10.9 fl (9.6-12.3); MONO # 0.6 10*3/uL (0.1-1.0); NEUT # 4.6 10*3/uL (2.3-7.9); NEUT % 70.9 % (47.0-73.0); PLATELET COUNT AUTOMATED 208 10*3/uL (130-400); RED BLOOD COUNT 5.03 10*6/uL (4.50-5.90); RED CELL DISTRI WIDTH 13.8 % (0-14.5); WHITE BLOOD COUNT 6.5 10*3/uL (4.8-10.8)
[2021-05-03 08:12] LABS: BILIRUBIN Negative (Negative); BLOOD Negative (Negative); CLARITY Clear (Clear); COLOR Yellow (Yellow); GLUCOSE Negative (Negative); KETONE Negative (Negative); LEUKO ESTERASE Trace (Negative); NITRITE Negative (Negative); UROBILINOGEN 0.2 E.U./dl (0.0-1.0)
[2021-05-03 08:20] LABS: URINE CREATININE RANDOM 59.6 mg/dL
[2021-05-03 08:24] LABS: POTASSIUM 4.2 mmol/L (3.5-5.1)
[2021-05-03 08:30] LABS: EPITHELIAL CELLS 0-2
[2021-05-03 08:31] LABS: BACTERIA TRACE
[2021-05-03 09:39] LABS: FERRITIN 70.6 ng/mL (22.0-322.0); VITAMIN D, 25-HYDROXY 35.7 ng/mL (30-100)
== END | disposition home or self-care (01) ==
LOC: LAB 07:47
PROVIDERS: ATTEND Internal Medicine Nephrology
DX: N18.32 Chronic kidney disease, stage 3b (principal); D63.1 Anemia in chronic kidney disease; N25.81 Secondary hyperparathyroidism of renal origin

== ENCOUNTER → 2021-07-28 | Outpatient (CLI) | payer OTHER | END | disposition home or self-care (01) | LOC: RAD 07:25 | PROVIDERS: ATTEND Family Medicine | DX: M47.812 Spondylosis without myelopathy or radiculopathy, cervical region (principal); M48.02 Spinal stenosis, cervical region; M25.511 Pain in right shoulder ==

== ENCOUNTER 2021-08-07 10:01 | Emergency (ER) | payer OTHER ==
[~2021-08-07] VITALS: Ht 175.2 cm; Wt 112.5 kg
[2021-08-07 10:08] VITALS: BP 165/82
[2021-08-07 10:15] LABS: BASO % 0.5 % (0.0-1.0); EOS # 0.1 10*3/uL (0.0-0.4); EOS % 2.2 % (1.0-4.0); LYMPH % 15.7 % (27.0-41.0); MEAN CELL VOLUME 90.2 fl (80.0-94.0); MEAN CORPUSCULAR HGB 30.3 pg (27.0-31.0); MEAN CORPUSCULAR HGB CONC 33.5 g/dl (33.0-37.0); MEAN PLATELET VOLUME 10.5 fl (9.6-12.3); MONO # 0.5 10*3/uL (0.1-1.0); MONO % 8.3 % (3.0-9.0); NEUT # 4.4 10*3/uL (2.3-7.9); PLATELET COUNT AUTOMATED 199 10*3/uL (130-400); RED BLOOD COUNT 5.32 10*6/uL (4.50-5.90); RED CELL DISTRI WIDTH 13.3 % (0-14.5)
[2021-08-07 10:27] LABS: ACT PARTIAL THROMBO TIME 30.9 SECONDS (20.0-32.1)
[2021-08-07 10:30] LABS: CREATININE 1.94 mg/dL (0.70-1.30); POTASSIUM 3.7 mmol/L (3.5-5.1)
[2021-08-07] MEDS ORDERED: PROVENTIL HFA6.7 GM INH (13:45)
[2021-08-07] MEDS ORDERED: AVPAK AZITHROM250 M1 PO (13:45)
[2021-08-07] MEDS ORDERED: MEDROL DOSEPAK4 MG PO (13:45)
== END 2021-08-07 14:16 | disposition home or self-care (01) ==
LOC: ED 10:01
PROVIDERS: Emergency Medicine
DX: J44.1 Chronic obstructive pulmonary disease with (acute) exacerbation (principal); Z20.822 Contact with and (suspected) exposure to COVID-19; Z79.899 Other long term (current) drug therapy; Z79.82 Long term (current) use of aspirin; Z90.49 Acquired absence of other specified parts of digestive tract

== ENCOUNTER → 2021-11-09 | Outpatient (CLI) | payer OTHER ==
[~2021-11-09] MED LIST changes: +AVPAK AZITHROM250 M1 PO; +PROVENTIL HFA6.7 GM INH
[2021-11-09 11:12] LABS: BASO % 0.5 % (0.0-1.0); EOS # 0.1 10*3/uL (0.0-0.4); HEMATOCRIT 50.7 % (42.0-52.0); LYMPH # 0.9 10*3/uL (1.3-4.4); LYMPH % 15.6 % (27.0-41.0); MEAN CELL VOLUME 91.7 fl (80.0-94.0); MEAN CORPUSCULAR HGB 30.9 pg (27.0-31.0); MEAN CORPUSCULAR HGB CONC 33.7 g/dl (33.0-37.0); MEAN PLATELET VOLUME 10.1 fl (9.6-12.3); MONO # 0.6 10*3/uL (0.1-1.0); MONO % 9.6 % (3.0-9.0); NEUT # 4.3 10*3/uL (2.3-7.9); PLATELET COUNT AUTOMATED 186 10*3/uL (130-400); RED BLOOD COUNT 5.53 10*6/uL (4.50-5.90); RED CELL DISTRI WIDTH 14.6 % (0-14.5)
[2021-11-09 11:30] LABS: CREATININE 1.83 mg/dL (0.70-1.30); POTASSIUM 3.7 mmol/L (3.5-5.1); TOTAL PROTEIN 8.2 gm/dL (6.4-8.2)
[2021-11-09 11:37] LABS: THYROID STIM HORMONE (HS) 3.37 uIU/ml (0.358-4.75)
[2021-11-09 11:50] LABS: BILIRUBIN Negative (Negative); BLOOD Negative (Negative); CLARITY Clear (Clear); COLOR Yellow (Yellow); GLUCOSE Negative (Negative); KETONE Negative (Negative); LEUKO ESTERASE Negative (Negative); NITRITE Negative (Negative); PH 5.5 (4.5-8.0); UROBILINOGEN 0.2 E.U./dl (0.0-1.0)
[2021-11-09 12:13] LABS: BACTERIA TRACE; EPITHELIAL CELLS 0-2; RBC 0-2 rbc/hpf (0-2); WBC 0-2 wbc/hpf (0-5)
[2021-11-09 13:17] LABS: VITAMIN D, 25-HYDROXY 47.9 ng/mL (30-100)
[2021-11-09 13:18] LABS: FERRITIN 81.6 ng/mL (22.0-322.0)
== END ==
LOC: LAB 10:44
PROVIDERS: ATTEND Family Medicine
DX: R79.89 Other specified abnormal findings of blood chemistry (principal); R53.83 Other fatigue; E55.9 Vitamin D deficiency, unspecified

== ENCOUNTER → 2022-03-18 | Outpatient (CLI) | payer OTHER ==
[~2022-03-18] MED LIST changes: +AMLODIPINE BESYL5 MG PO; +FUROSEMIDE40 MG PO; +IMDUR SA30 MG PO; +METOPROLOL SUC100 M1 PO; +METOPROLOL TART50 M1 PO; +PANTOPRAZOLE SO40 MG PO
== END | disposition home or self-care (01) ==
LOC: RAD 10:44
PROVIDERS: ATTEND Chiropractor
DX: M47.812 Spondylosis without myelopathy or radiculopathy, cervical region (principal); M48.02 Spinal stenosis, cervical region; M25.78 Osteophyte, vertebrae

== ENCOUNTER → 2022-03-29 | Outpatient (CLI) | payer OTHER ==
[~2022-03-29] MED LIST changes: +ASPIRIN ADULT L81 M2 PO; +CEFDINIR300 MG PO; +VITAMIN D350 MCG PO
[2022-03-29 14:14] LABS: BASO # 0.1 10*3/uL (0.0-0.1); BASO % 0.9 % (0.0-1.0); EOS # 0.1 10*3/uL (0.0-0.4); EOS % 1.2 % (1.0-4.0); HEMATOCRIT 46.7 % (42.0-52.0); LYMPH % 14.7 % (27.0-41.0); MEAN CELL VOLUME 90.2 fl (80.0-94.0); MEAN CORPUSCULAR HGB 31.3 pg (27.0-31.0); MEAN CORPUSCULAR HGB CONC 34.7 g/dl (33.0-37.0); MEAN PLATELET VOLUME 10.4 fl (9.6-12.3); MONO # 0.6 10*3/uL (0.1-1.0); NEUT # 4.8 10*3/uL (2.3-7.9); NEUT % 73.7 % (47.0-73.0); PLATELET COUNT AUTOMATED 233 10*3/uL (130-400); RED BLOOD COUNT 5.18 10*6/uL (4.50-5.90); RETICULOCYTE % 1.58 % (0.50-2.50); WHITE BLOOD COUNT 6.5 10*3/uL (4.8-10.8)
[2022-03-29 14:16] LABS: BILIRUBIN Negative (Negative); BLOOD Trace-Lysed (Negative); CLARITY Clear (Clear); COLOR Yellow (Yellow); GLUCOSE Negative (Negative); KETONE Negative (Negative); LEUKO ESTERASE Negative (Negative); NITRITE Negative (Negative); PH 5.5 (4.5-8.0); UROBILINOGEN 0.2 E.U./dl (0.0-1.0)
[2022-03-29 14:27] LABS: BACTERIA 1+
[2022-03-29 14:34] LABS: POTASSIUM 3.4 mmol/L (3.4-5.1); T3 UPTAKE 19.9 % (22.4-36.7); THYROID STIM HORMONE (HS) 3.051 uIU/ml (0.550-4.780); THYROXINE (T4) TOTAL 10.1 ug/dl (4.5-10.9); TOTAL PROTEIN 8.1 gm/dL (6.0-8.0)
== END | disposition home or self-care (01) ==
LOC: LAB 13:41
PROVIDERS: ATTEND Family Medicine
DX: E78.5 Hyperlipidemia, unspecified (principal); E55.9 Vitamin D deficiency, unspecified; R79.89 Other specified abnormal findings of blood chemistry; R53.83 Other fatigue; R74.8 Abnormal levels of other serum enzymes; R06.02 Shortness of breath

== ENCOUNTER → 2022-05-17 | Outpatient (CLI) | payer OTHER ==
[2022-05-17 11:08] LABS: BASO # 0.1 10*3/uL (0.0-0.1); BASO % 0.9 % (0.0-1.0); BILIRUBIN Negative (Negative); BLOOD Negative (Negative); CLARITY Clear (Clear); COLOR Yellow (Yellow); EOS % 0.3 % (1.0-4.0); GLUCOSE Negative (Negative); HEMATOCRIT 38.9 % (42.0-52.0); KETONE Negative (Negative); LEUKO ESTERASE Negative (Negative); LYMPH # 0.6 10*3/uL (1.3-4.4); MEAN CELL VOLUME 91.5 fl (80.0-94.0); MEAN CORPUSCULAR HGB 31.3 pg (27.0-31.0); MEAN CORPUSCULAR HGB CONC 34.2 g/dl (33.0-37.0); MEAN PLATELET VOLUME 10.7 fl (9.6-12.3); MONO # 0.4 10*3/uL (0.1-1.0); MONO % 7.5 % (3.0-9.0); NEUT # 4.7 10*3/uL (2.3-7.9); NEUT % 79.8 % (47.0-73.0); NITRITE Negative (Negative); PH 6.5 (4.5-8.0); PLATELET COUNT AUTOMATED 233 10*3/uL (130-400); RED BLOOD COUNT 4.25 10*6/uL (4.50-5.90); RED CELL DISTRI WIDTH 13.8 % (0-14.5); UROBILINOGEN 0.2 E.U./dl (0.0-1.0); WHITE BLOOD COUNT 5.8 10*3/uL (4.8-10.8)
[2022-05-17 11:15] LABS: URINE CREATININE RANDOM 33.17 mg/dL
[2022-05-17 11:28] LABS: BACTERIA TRACE; EPITHELIAL CELLS 0-2; HYALINE CAST 0-2; WBC 0-2 wbc/hpf (0-5)
[2022-05-17 11:35] LABS: POTASSIUM 3.8 mmol/L (3.4-5.1)
[2022-05-17 11:39] LABS: VITAMIN D, 25-HYDROXY 40.2 ng/mL (30-100)
== END | disposition home or self-care (01) ==
LOC: LAB 10:37
PROVIDERS: ATTEND Internal Medicine Nephrology
DX: N18.32 Chronic kidney disease, stage 3b (principal); N25.81 Secondary hyperparathyroidism of renal origin

== ENCOUNTER 2022-08-29 10:55 | Emergency (ER) | payer OTHER ==
[~2022-08-29] VITALS: Wt 95.3 kg
[2022-08-29 11:01] VITALS: BP 91/50
[2022-08-29 11:43] LABS: BASO % 0.7 % (0.0-1.0); EOS # 0.1 10*3/uL (0.0-0.4); EOS % 2.4 % (1.0-4.0); HEMATOCRIT 45.9 % (42.0-52.0); LYMPH # 0.9 10*3/uL (1.3-4.4); LYMPH % 21.5 % (27.0-41.0); MEAN CELL VOLUME 90.9 fl (80.0-94.0); MEAN CORPUSCULAR HGB 30.3 pg (27.0-31.0); MEAN CORPUSCULAR HGB CONC 33.3 g/dl (33.0-37.0); MEAN PLATELET VOLUME 10.5 fl (9.6-12.3); MONO # 0.4 10*3/uL (0.1-1.0); MONO % 10.5 % (3.0-9.0); NEUT # 2.7 10*3/uL (2.3-7.9); NEUT % 64.7 % (47.0-73.0); PLATELET COUNT AUTOMATED 137 10*3/uL (130-400); RED BLOOD COUNT 5.05 10*6/uL (4.50-5.90); RED CELL DISTRI WIDTH 15.4 % (0-14.5); WHITE BLOOD COUNT 4.1 10*3/uL (4.8-10.8)
[2022-08-29 12:02] LABS: POTASSIUM 3.5 mmol/L (3.4-5.1); TOTAL PROTEIN 7.2 gm/dL (6.0-8.0)
[2022-08-29] MEDS ORDERED: CEPHALEXIN500 M1 PO ×2 (13:03)
== END 2022-08-29 13:15 | disposition home or self-care (01) ==
LOC: ED 10:55
PROVIDERS: Emergency Medicine
DX: S61.215A Laceration without foreign body of left ring finger without damage to nail, initial encounter (principal); S01.511A Laceration without foreign body of lip, initial encounter; R55 Syncope and collapse; R61 Generalized hyperhidrosis; F17.210 Nicotine dependence, cigarettes, uncomplicated; Z79.899 Other long term (current) drug therapy; Z79.82 Long term (current) use of aspirin; Z98.890 Other specified postprocedural states; Z90.49 Acquired absence of other specified parts of digestive tract; W22.8XXA Striking against or struck by other objects, initial encounter; Y93.89 Activity, other specified; Y92.89 Other specified places as the place of occurrence of the external cause; Y99.8 Other external cause status

== ENCOUNTER 2022-09-08 07:49 | Emergency (ER) | payer OTHER ==
[~2022-09-08] VITALS: Ht 175.2 cm; Wt 68.0 kg
[~2022-09-08 07:49] MED LIST changes: +CEPHALEXIN500 M1 PO
[2022-09-08 08:06] VITALS: BP 141/69
== END 2022-09-08 08:46 | disposition home or self-care (01) ==
LOC: ED 07:49
DX: S61.215D Laceration without foreign body of left ring finger without damage to nail, subsequent encounter (principal); I10 Essential (primary) hypertension; I25.2 Old myocardial infarction; K21.9 Gastro-esophageal reflux disease without esophagitis; F32.A Depression, unspecified; J44.9 Chronic obstructive pulmonary disease, unspecified; Z90.49 Acquired absence of other specified parts of digestive tract; Z98.890 Other specified postprocedural states; F17.210 Nicotine dependence, cigarettes, uncomplicated; X58.XXXD Exposure to other specified factors, subsequent encounter

== ENCOUNTER → 2022-09-19 | Outpatient (CLI) | payer OTHER ==
[2022-09-19 14:19] LABS: BILIRUBIN Negative (Negative); BLOOD Negative (Negative); CLARITY Clear (Clear); COLOR Yellow (Yellow); GLUCOSE Negative (Negative); KETONE Negative (Negative); LEUKO ESTERASE Negative (Negative); NITRITE Negative (Negative); SPECIFIC GRAVITY 1.015 (1.001-1.030)
[2022-09-19 14:20] LABS: BASO # 0.1 10*3/uL (0.0-0.1); BASO % 1.1 % (0.0-1.0); EOS # 0.1 10*3/uL (0.0-0.4); EOS % 2.7 % (1.0-4.0); LYMPH # 1.1 10*3/uL (1.3-4.4); MEAN CELL VOLUME 89.8 fl (80.0-94.0); MEAN CORPUSCULAR HGB 29.7 pg (27.0-31.0); MEAN CORPUSCULAR HGB CONC 33.1 g/dl (33.0-37.0); MEAN PLATELET VOLUME 9.9 fl (9.6-12.3); MONO # 0.5 10*3/uL (0.1-1.0); MONO % 11.2 % (3.0-9.0); NEUT # 2.7 10*3/uL (2.3-7.9); NEUT % 59.6 % (47.0-73.0); PLATELET COUNT AUTOMATED 187 10*3/uL (130-400); RED BLOOD COUNT 5.01 10*6/uL (4.50-5.90); RED CELL DISTRI WIDTH 15.5 % (0-14.5); WHITE BLOOD COUNT 4.5 10*3/uL (4.8-10.8)
[2022-09-19 14:27] LABS: URINE CREATININE RANDOM 58.85 mg/dL
[2022-09-19 14:28] LABS: BACTERIA TRACE; EPITHELIAL CELLS 0-2; RBC 0-2 rbc/hpf (0-2); WBC 0-2 wbc/hpf (0-5)
[2022-09-19 14:45] LABS: BUN 15 mg/dl (9-23); CHLORIDE 108 mmol/L (98-107); POTASSIUM 3.7 mmol/L (3.4-5.1)
[2022-09-19 14:50] LABS: VITAMIN D, 25-HYDROXY 58.1 ng/mL (30-100)
== END | disposition home or self-care (01) ==
LOC: LAB 13:48
PROVIDERS: ATTEND Internal Medicine Nephrology
DX: N25.81 Secondary hyperparathyroidism of renal origin (principal); N18.30 Chronic kidney disease, stage 3 unspecified

== ENCOUNTER → 2023-01-09 | Outpatient (CLI) | payer OTHER ==
[2023-01-09 10:14] LABS: BASO # 0.1 10*3/uL (0.0-0.1); BILIRUBIN Negative (Negative); BLOOD Negative (Negative); CLARITY Clear (Clear); COLOR Yellow (Yellow); EOS # 0.1 10*3/uL (0.0-0.4); EOS % 2.4 % (1.0-4.0); GLUCOSE Negative (Negative); HEMATOCRIT 49.3 % (42.0-52.0); KETONE Negative (Negative); LEUKO ESTERASE Negative (Negative); LYMPH # 0.6 10*3/uL (1.3-4.4); LYMPH % 12.4 % (27.0-41.0); MEAN CELL VOLUME 90.8 fl (80.0-94.0); MEAN CORPUSCULAR HGB 31.1 pg (27.0-31.0); MEAN CORPUSCULAR HGB CONC 34.3 g/dl (33.0-37.0); MONO # 0.5 10*3/uL (0.1-1.0); MONO % 9.6 % (3.0-9.0); NEUT # 3.8 10*3/uL (2.3-7.9); NEUT % 74.4 % (47.0-73.0); NITRITE Negative (Negative); PH 6.5 (4.5-8.0); PLATELET COUNT AUTOMATED 171 10*3/uL (130-400); RED BLOOD COUNT 5.43 10*6/uL (4.50-5.90); RED CELL DISTRI WIDTH 13.3 % (0-14.5); RETICULOCYTE % 1.43 % (0.50-2.50); WHITE BLOOD COUNT 5.1 10*3/uL (4.8-10.8)
[2023-01-09 10:32] LABS: EPITHELIAL CELLS 0-2; RBC 0-2 rbc/hpf (0-2)
[2023-01-09 10:43] LABS: VITAMIN D, 25-HYDROXY 55.8 ng/mL (30-100)
[2023-01-09 10:44] LABS: POTASSIUM 3.8 mmol/L (3.4-5.1); T3 UPTAKE 25.7 % (22.4-36.7); THYROXINE (T4) TOTAL 9.1 ug/dl (4.5-10.9); TOTAL PROTEIN 7.5 gm/dL (6.0-8.0)
== END | disposition home or self-care (01) ==
LOC: LAB 09:31
PROVIDERS: ATTEND Family Medicine
DX: E78.5 Hyperlipidemia, unspecified (principal); R79.89 Other specified abnormal findings of blood chemistry; R74.8 Abnormal levels of other serum enzymes; E55.9 Vitamin D deficiency, unspecified

== ENCOUNTER → 2023-02-07 | Outpatient (CLI) | payer OTHER ==
[2023-02-07 13:29] LABS: BILIRUBIN Negative (Negative); BLOOD Negative (Negative); CLARITY Clear (Clear); COLOR Yellow (Yellow); GLUCOSE Negative (Negative); KETONE Negative (Negative); LEUKO ESTERASE Negative (Negative); NITRITE Negative (Negative); PH 6.5 (4.5-8.0); SPECIFIC GRAVITY <= 1.005 (1.001-1.030); UROBILINOGEN 0.2 E.U./dl (0.0-1.0)
[2023-02-07 13:30] LABS: BASO # 0.1 10*3/uL (0.0-0.1); BASO % 1.1 % (0.0-1.0); EOS # 0.1 10*3/uL (0.0-0.4); EOS % 1.9 % (1.0-4.0); HEMATOCRIT 48.9 % (42.0-52.0); LYMPH % 22.4 % (27.0-41.0); MEAN CELL VOLUME 93.9 fl (80.0-94.0); MEAN CORPUSCULAR HGB 30.5 pg (27.0-31.0); MEAN CORPUSCULAR HGB CONC 32.5 g/dl (33.0-37.0); MEAN PLATELET VOLUME 10.7 fl (9.6-12.3); MONO # 0.5 10*3/uL (0.1-1.0); MONO % 9.9 % (3.0-9.0); NEUT % 64.5 % (47.0-73.0); PLATELET COUNT AUTOMATED 162 10*3/uL (130-400); RED BLOOD COUNT 5.21 10*6/uL (4.50-5.90); RED CELL DISTRI WIDTH 13.7 % (0-14.5); WHITE BLOOD COUNT 4.6 10*3/uL (4.8-10.8)
[2023-02-07 13:47] LABS: URINE CREATININE RANDOM 29.59 mg/dL
[2023-02-07 13:48] LABS: WBC 0-2 wbc/hpf (0-5)
[2023-02-07 13:55] LABS: POTASSIUM 3.9 mmol/L (3.4-5.1)
[2023-02-07 14:15] LABS: VITAMIN D, 25-HYDROXY 56.6 ng/mL (30-100)
== END | disposition home or self-care (01) ==
LOC: LAB 12:35 → US 13:00
PROVIDERS: ATTEND Internal Medicine Nephrology
DX: I12.9 Hypertensive chronic kidney disease with stage 1 through stage 4 chronic kidney disease, or unspecified chronic kidney disease (principal); R20.2 Paresthesia of skin; N25.81 Secondary hyperparathyroidism of renal origin; N18.30 Chronic kidney disease, stage 3 unspecified; M06.9 Rheumatoid arthritis, unspecified

== ENCOUNTER 2023-04-17 09:03 | Emergency (ER) | payer OTHER ==
[~2023-04-17] VITALS: Ht 175.2 cm; Wt 72.6 kg
[2023-04-17 09:10] VITALS: BP 144/100
== END 2023-04-17 09:31 | disposition home or self-care (01) ==
LOC: ED 09:03
DX: S61.412D Laceration without foreign body of left hand, subsequent encounter (principal); I10 Essential (primary) hypertension; I25.2 Old myocardial infarction; K21.9 Gastro-esophageal reflux disease without esophagitis; F32.A Depression, unspecified; J44.9 Chronic obstructive pulmonary disease, unspecified; F17.210 Nicotine dependence, cigarettes, uncomplicated; Z90.49 Acquired absence of other specified parts of digestive tract; Z98.890 Other specified postprocedural states; X58.XXXD Exposure to other specified factors, subsequent encounter

== ENCOUNTER → 2023-07-15 | Outpatient (CLI) | payer OTHER ==
[2023-07-15 09:32] LABS: BASO # 0.1 10*3/uL (0.0-0.1); EOS # 0.3 10*3/uL (0.0-0.4); EOS % 4.8 % (1.0-4.0); HEMATOCRIT 48.2 % (42.0-52.0); LYMPH # 1.2 10*3/uL (1.3-4.4); LYMPH % 20.3 % (27.0-41.0); MEAN CELL VOLUME 95.3 fl (80.0-94.0); MEAN CORPUSCULAR HGB 31.4 pg (27.0-31.0); MEAN PLATELET VOLUME 10.3 fl (9.6-12.3); MONO # 0.7 10*3/uL (0.1-1.0); MONO % 11.7 % (3.0-9.0); NEUT # 3.6 10*3/uL (2.3-7.9); NEUT % 61.9 % (47.0-73.0); PLATELET COUNT AUTOMATED 186 10*3/uL (130-400); RED BLOOD COUNT 5.06 10*6/uL (4.50-5.90); RED CELL DISTRI WIDTH 14.3 % (0-14.5); WHITE BLOOD COUNT 5.8 10*3/uL (4.8-10.8)
[2023-07-15 09:36] LABS: BILIRUBIN Negative (Negative); BLOOD Negative (Negative); CLARITY Clear (Clear); COLOR Yellow (Yellow); GLUCOSE Negative (Negative); KETONE Negative (Negative); LEUKO ESTERASE Negative (Negative); NITRITE Negative (Negative); PH 5.5 (4.5-8.0); UROBILINOGEN 0.2 E.U./dl (0.0-1.0)
[2023-07-15 09:39] LABS: URINE CREATININE RANDOM 27.92 mg/dL
[2023-07-15 09:57] LABS: BACTERIA TRACE; WBC 0-2 wbc/hpf (0-5)
[2023-07-15 10:09] LABS: VITAMIN D, 25-HYDROXY 63.3 ng/mL (30-100)
[2023-07-15 12:14] LABS: POTASSIUM 4.3 mmol/L (3.4-5.1)
== END ==
LOC: LAB 09:10
PROVIDERS: ATTEND Internal Medicine Nephrology
DX: N18.30 Chronic kidney disease, stage 3 unspecified (principal); N25.81 Secondary hyperparathyroidism of renal origin

== ENCOUNTER 2023-08-02 17:55 | Emergency (ER) | payer OTHER ==
[~2023-08-02] VITALS: Ht 175.2 cm; Wt 124.7 kg
[2023-08-02 18:10] VITALS: BP 149/78
[2023-08-02] MEDS ORDERED: ACETAMINOPHEN 325 MG TAB PO ONE (19:20)
[2023-08-02] MEDS ORDERED: methylPREDNISolone sod succ 125 MG VIAL IM ONE (19:20)
[2023-08-02] MEDS ORDERED: METHOCARBAMOL 500 MG TAB PO ONE (19:20)
[2023-08-02] MEDS ORDERED: METHOCARBAMOL500 M1 PO (20:31)
== END 2023-08-02 21:56 | disposition home or self-care (01) ==
LOC: ED 17:55
DX: M43.6 Torticollis (principal); I10 Essential (primary) hypertension; I25.2 Old myocardial infarction; K21.9 Gastro-esophageal reflux disease without esophagitis; F32.A Depression, unspecified; J44.9 Chronic obstructive pulmonary disease, unspecified; F17.210 Nicotine dependence, cigarettes, uncomplicated; Z90.49 Acquired absence of other specified parts of digestive tract; Z98.890 Other specified postprocedural states

== ENCOUNTER 2023-10-12 18:03 | Emergency (ER) | payer OTHER ==
[~2023-10-12] VITALS: Ht 175.2 cm; Wt 86.4 kg
[~2023-10-12 18:03] MED LIST changes: +METHOCARBAMOL500 M1 PO
[2023-10-12 18:12] VITALS: BP 166/93
[2023-10-12] MEDS ORDERED: SODIUM CHLORIDE 0.9% 1,000 ML IV ONE (18:15)
[2023-10-12] MEDS ORDERED: Thiamine 200 MG/2 ML VIAL IV ONE (18:15)
[2023-10-12 18:33] LABS: BASO # 0.1 10*3/uL (0.0-0.1); BASO % 0.9 % (0.0-1.0); EOS # 0.2 10*3/uL (0.0-0.4); EOS % 2.8 % (1.0-4.0); LYMPH # 1.1 10*3/uL (1.3-4.4); LYMPH % 19.4 % (27.0-41.0); MEAN CELL VOLUME 94.9 fl (80.0-94.0); MEAN CORPUSCULAR HGB CONC 33.5 g/dl (33.0-37.0); MEAN PLATELET VOLUME 10.8 fl (9.6-12.3); MONO # 0.5 10*3/uL (0.1-1.0); MONO % 8.7 % (3.0-9.0); NEUT # 3.8 10*3/uL (2.3-7.9); NEUT % 67.8 % (47.0-73.0); PLATELET COUNT AUTOMATED 171 10*3/uL (130-400); RED BLOOD COUNT 4.53 10*6/uL (4.50-5.90); RED CELL DISTRI WIDTH 14.6 % (0-14.5); WHITE BLOOD COUNT 5.7 10*3/uL (4.8-10.8)
[2023-10-12 18:38] LABS: MEAN CORPUSCULAR HGB 31.8 pg (27.0-31.0)
[2023-10-12 18:53] LABS: ALKALINE PHOSPHATASE 106 U/L (46-116); BUN 12 mg/dl (9-23); CHLORIDE 105 mmol/L (98-107); LIPASE 27 U/L (12-53); POTASSIUM 4.6 mmol/L (3.4-5.1); SGPT/ALT 22 U/L (5-49); TOTAL PROTEIN 6.8 gm/dL (6.0-8.0)
[2023-10-12 18:54] LABS: ETHYL ALCOHOL < 3.0 mg/dl (<3)
[2023-10-12] MEDS ORDERED: BUSPIRONE30 MG PO (19:07)
[2023-10-12] MEDS ORDERED: ISOSORBIDE MONO10 MG PO (19:07)
[2023-10-12 19:59] LABS: BILIRUBIN Negative (Negative); BLOOD Negative (Negative); CLARITY Clear (Clear); COLOR Yellow (Yellow); GLUCOSE Negative (Negative); KETONE Negative (Negative); LEUKO ESTERASE Negative (Negative); NITRITE Negative (Negative); SPECIFIC GRAVITY <= 1.005 (1.001-1.030); UROBILINOGEN 0.2 E.U./dl (0.0-1.0)
[2023-10-12 20:06] LABS: EPITHELIAL CELLS 0-2; RBC 0-2 rbc/hpf (0-2); WBC 0-2 wbc/hpf (0-5)
== END 2023-10-12 20:54 | disposition home or self-care (01) ==
LOC: ED 18:03
PROVIDERS: Internal Medicine
DX: R56.9 Unspecified convulsions (principal); I10 Essential (primary) hypertension; I25.2 Old myocardial infarction; K21.9 Gastro-esophageal reflux disease without esophagitis; F32.A Depression, unspecified; J44.9 Chronic obstructive pulmonary disease, unspecified; F17.210 Nicotine dependence, cigarettes, uncomplicated; Z90.49 Acquired absence of other specified parts of digestive tract; Z98.890 Other specified postprocedural states

== ENCOUNTER 2024-01-05 00:30 | Emergency (ER) | payer OTHER ==
[~2024-01-05] VITALS: Ht 175.2 cm; Wt 69.9 kg
[~2024-01-05 00:30] MED LIST changes: +BUSPIRONE30 MG PO; +ISOSORBIDE MONO10 MG PO; +MEMANTINE HCL10 MG PO; +MIRTAZAPINE15 M2 PO; +RIVASTIGMINE1 EAC2 T
[2024-01-05 00:53] LABS: BASO # 0.1 10*3/uL (0.0-0.1); BASO % 1.9 % (0.0-1.0); EOS # 0.4 10*3/uL (0.0-0.4); EOS % 5.9 % (1.0-4.0); HEMATOCRIT 43.6 % (42.0-52.0); MEAN CELL VOLUME 95.4 fl (80.0-94.0); MEAN CORPUSCULAR HGB CONC 31.4 g/dl (33.0-37.0); MEAN PLATELET VOLUME 9.9 fl (9.6-12.3); MONO # 0.6 10*3/uL (0.1-1.0); MONO % 8.7 % (3.0-9.0); NEUT # 3.9 10*3/uL (2.3-7.9); NEUT % 61.2 % (47.0-73.0); PLATELET COUNT AUTOMATED 319 10*3/uL (130-400); RED BLOOD COUNT 4.57 10*6/uL (4.50-5.90); RED CELL DISTRI WIDTH 14.8 % (0-14.5); WHITE BLOOD COUNT 6.4 10*3/uL (4.8-10.8)
[2024-01-05 01:09] LABS: ALKALINE PHOSPHATASE 156 U/L (46-116); BUN 35 mg/dl (9-23); CHLORIDE 100 mmol/L (98-107); POTASSIUM 3.7 mmol/L (3.4-5.1); SGPT/ALT 22 U/L (5-49); TOTAL PROTEIN 7.6 gm/dL (6.0-8.0)
[2024-01-05 01:10] LABS: ETHYL ALCOHOL < 3.0 mg/dl (<3)
[2024-01-05 03:14] LABS: BILIRUBIN Negative (Negative); BLOOD Negative (Negative); CLARITY Clear (Clear); COLOR Yellow (Yellow); GLUCOSE Negative (Negative); KETONE Negative (Negative); LEUKO ESTERASE Negative (Negative); NITRITE Negative (Negative); PH 5.5 (4.5-8.0); SPECIFIC GRAVITY <= 1.005 (1.001-1.030); UROBILINOGEN 0.2 E.U./dl (0.0-1.0)
[2024-01-05 03:21] LABS: URINE AMPHETAMINES Negative (1000ng/ml); URINE BARBITURATES Negative (200ng/ml); URINE BENZODIAZEPINES Negative (200ng/ml); URINE CANNABINOIDS (THC) Negative (50ng/ml); URINE COCAINE Negative (300ng/ml); URINE METHADONE Negative (300ng/ml); URINE OPIATES Negative (300ng/ml); URINE PHENCYCLIDINE Negative (25ng/ml)
[2024-01-05 03:31] LABS: WBC 0-2 wbc/hpf (0-5)
[2024-01-05] MEDS ORDERED: Tdap Vaccine 0.5 ML SYR (Adult Vaccine) IM ONE (05:30)
[2024-01-05] MEDS ORDERED: SODIUM CHLORIDE 0.9% 0 ML IV ONE (06:07)
[2024-01-05 08:17] VITALS: BP 129/80
== END 2024-01-05 09:22 | disposition home or self-care (01) ==
LOC: ED 00:30
PROVIDERS: Internal Medicine
DX: R45.851 Suicidal ideations (principal); I25.2 Old myocardial infarction; K21.9 Gastro-esophageal reflux disease without esophagitis; J44.9 Chronic obstructive pulmonary disease, unspecified; F32.A Depression, unspecified; I11.0 Hypertensive heart disease with heart failure; I50.9 Heart failure, unspecified; Z90.49 Acquired absence of other specified parts of digestive tract; Z98.890 Other specified postprocedural states; F17.210 Nicotine dependence, cigarettes, uncomplicated; Z79.899 Other long term (current) drug therapy

== ENCOUNTER 2024-01-12 06:34 | Emergency (ER) | payer OTHER ==
[~2024-01-12] VITALS: Ht 175.2 cm; Wt 62.1 kg
[2024-01-12 06:56] VITALS: BP 159/91
[2024-01-12 07:17] LABS: BASO # 0.1 10*3/uL (0.0-0.1); BASO % 1.2 % (0.0-1.0); EOS # 0.3 10*3/uL (0.0-0.4); EOS % 3.6 % (1.0-4.0); HEMATOCRIT 45.3 % (42.0-52.0); MEAN CORPUSCULAR HGB 29.8 pg (27.0-31.0); MEAN CORPUSCULAR HGB CONC 31.3 g/dl (33.0-37.0); MEAN PLATELET VOLUME 9.9 fl (9.6-12.3); MONO # 0.5 10*3/uL (0.1-1.0); MONO % 5.7 % (3.0-9.0); NEUT # 6.6 10*3/uL (2.3-7.9); NEUT % 76.5 % (47.0-73.0); PLATELET COUNT AUTOMATED 283 10*3/uL (130-400); RED BLOOD COUNT 4.77 10*6/uL (4.50-5.90); RED CELL DISTRI WIDTH 14.8 % (0-14.5); WHITE BLOOD COUNT 8.6 10*3/uL (4.8-10.8)
[2024-01-12 07:28] LABS: ALKALINE PHOSPHATASE 144 U/L (46-116); BUN 20 mg/dl (9-23); CHLORIDE 100 mmol/L (98-107); CPK 73 U/L (34-171); POTASSIUM 3.7 mmol/L (3.4-5.1); SGPT/ALT 21 U/L (5-49)
[2024-01-12 07:36] LABS: ETHYL ALCOHOL < 3.0 mg/dl (<3)
[2024-01-12 07:56] LABS: BILIRUBIN Negative (Negative); BLOOD Negative (Negative); CLARITY Clear (Clear); COLOR Yellow (Yellow); GLUCOSE Negative (Negative); KETONE Negative (Negative); LEUKO ESTERASE Negative (Negative); NITRITE Negative (Negative); PH 5.5 (4.5-8.0); SPECIFIC GRAVITY <= 1.005 (1.001-1.030); UROBILINOGEN 0.2 E.U./dl (0.0-1.0)
[2024-01-12 08:03] LABS: URINE AMPHETAMINES Negative (1000ng/ml); URINE BARBITURATES Negative (200ng/ml); URINE BENZODIAZEPINES Negative (200ng/ml); URINE CANNABINOIDS (THC) Negative (50ng/ml); URINE COCAINE Negative (300ng/ml); URINE METHADONE Negative (300ng/ml); URINE OPIATES Negative (300ng/ml); URINE PHENCYCLIDINE Negative (25ng/ml)
[2024-01-12 08:19] LABS: BACTERIA TRACE; EPITHELIAL CELLS 0-2; WBC 0-2 wbc/hpf (0-5)
== END 2024-01-12 11:30 | disposition home or self-care (01) ==
LOC: ED 06:34
PROVIDERS: Internal Medicine
DX: F32.A Depression, unspecified (principal); I10 Essential (primary) hypertension; I25.2 Old myocardial infarction; K21.9 Gastro-esophageal reflux disease without esophagitis; J44.9 Chronic obstructive pulmonary disease, unspecified; F17.210 Nicotine dependence, cigarettes, uncomplicated; Z79.899 Other long term (current) drug therapy; Z90.49 Acquired absence of other specified parts of digestive tract; Z98.890 Other specified postprocedural states

== ENCOUNTER 2024-01-27 00:13 | Emergency (ER) | payer OTHER ==
[~2024-01-27] VITALS: Ht 175.2 cm; Wt 59.0 kg
[2024-01-27 00:39] LABS: BASO # 0.1 10*3/uL (0.0-0.1); BASO % 1.3 % (0.0-1.0); EOS # 0.6 10*3/uL (0.0-0.4); EOS % 9.6 % (1.0-4.0); HEMATOCRIT 41.2 % (42.0-52.0); MEAN CELL VOLUME 92.6 fl (80.0-94.0); MEAN CORPUSCULAR HGB 29.7 pg (27.0-31.0); MEAN PLATELET VOLUME 9.9 fl (9.6-12.3); MONO # 0.5 10*3/uL (0.1-1.0); MONO % 7.8 % (3.0-9.0); NEUT # 4.2 10*3/uL (2.3-7.9); NEUT % 67.9 % (47.0-73.0); PLATELET COUNT AUTOMATED 207 10*3/uL (130-400); RED BLOOD COUNT 4.45 10*6/uL (4.50-5.90); WHITE BLOOD COUNT 6.3 10*3/uL (4.8-10.8)
[2024-01-27 00:56] LABS: POTASSIUM 3.2 mmol/L (3.4-5.1)
[2024-01-27 01:11] LABS: ETHYL ALCOHOL 5.1 mg/dl (<3)
[2024-01-27] MEDS ORDERED: Prochlorperazine Edisylate 10 MG/2 ML VIAL IV ONE (04:30)
[2024-01-27] MEDS ORDERED: SODIUM CHLORIDE 0.9% 1,000 ML IV ONE (04:35)
[2024-01-27 06:14] VITALS: BP 138/84
[2024-01-27] MEDS ORDERED: POTASSIUM CHLORIDE 20 MEQ TAB PO ONE (07:00)
[2024-01-27 10:47] LABS: BILIRUBIN Negative (Negative); BLOOD Negative (Negative); CLARITY Clear (Clear); COLOR Yellow (Yellow); GLUCOSE Negative (Negative); KETONE Negative (Negative); LEUKO ESTERASE Negative (Negative); NITRITE Negative (Negative); PH 7.5 (4.5-8.0); UROBILINOGEN 0.2 E.U./dl (0.0-1.0)
[2024-01-27 10:54] LABS: URINE AMPHETAMINES Negative (1000ng/ml); URINE BARBITURATES Negative (200ng/ml); URINE BENZODIAZEPINES Negative (200ng/ml); URINE CANNABINOIDS (THC) Negative (50ng/ml); URINE COCAINE Negative (300ng/ml); URINE METHADONE Negative (300ng/ml); URINE OPIATES Negative (300ng/ml); URINE PHENCYCLIDINE Negative (25ng/ml)
[2024-01-27 10:56] LABS: BACTERIA 1+; EPITHELIAL CELLS 0-2; RBC 0-2 rbc/hpf (0-2); WBC 0-2 wbc/hpf (0-5)
== END 2024-01-27 11:52 | disposition home or self-care (01) ==
LOC: ED 00:13
PROVIDERS: Internal Medicine
DX: F43.21 Adjustment disorder with depressed mood (principal); R07.89 Other chest pain; I10 Essential (primary) hypertension; I25.2 Old myocardial infarction; K21.9 Gastro-esophageal reflux disease without esophagitis; J44.9 Chronic obstructive pulmonary disease, unspecified; F17.210 Nicotine dependence, cigarettes, uncomplicated; Z79.899 Other long term (current) drug therapy; Z90.49 Acquired absence of other specified parts of digestive tract; Z98.890 Other specified postprocedural states

== ENCOUNTER 2024-02-17 06:21 | Emergency (ER) | payer OTHER ==
[~2024-02-17] VITALS: Ht 175.2 cm; Wt 62.1 kg
[2024-02-17 06:40] LABS: BILIRUBIN Negative (Negative); BLOOD Negative (Negative); CLARITY Clear (Clear); COLOR Yellow (Yellow); GLUCOSE Negative (Negative); KETONE Negative (Negative); LEUKO ESTERASE Negative (Negative); NITRITE Negative (Negative); UROBILINOGEN 0.2 E.U./dl (0.0-1.0)
[2024-02-17 06:47] LABS: URINE AMPHETAMINES Negative (1000ng/ml); URINE BARBITURATES Negative (200ng/ml); URINE BENZODIAZEPINES Negative (200ng/ml); URINE CANNABINOIDS (THC) Negative (50ng/ml); URINE COCAINE Negative (300ng/ml); URINE METHADONE Negative (300ng/ml); URINE OPIATES Negative (300ng/ml); URINE PHENCYCLIDINE Negative (25ng/ml)
[2024-02-17 06:59] LABS: EPITHELIAL CELLS 0-2; RBC 0-2 rbc/hpf (0-2); WBC 0-2 wbc/hpf (0-5)
[2024-02-17 07:34] LABS: BASO # 0.1 10*3/uL (0.0-0.1); BASO % 1.1 % (0.0-1.0); EOS # 0.7 10*3/uL (0.0-0.4); EOS % 9.2 % (1.0-4.0); MEAN CELL VOLUME 91.6 fl (80.0-94.0); MEAN CORPUSCULAR HGB 28.9 pg (27.0-31.0); MEAN CORPUSCULAR HGB CONC 31.6 g/dl (33.0-37.0); MEAN PLATELET VOLUME 9.9 fl (9.6-12.3); MONO # 0.6 10*3/uL (0.1-1.0); MONO % 8.3 % (3.0-9.0); NEUT # 5.1 10*3/uL (2.3-7.9); PLATELET COUNT AUTOMATED 189 10*3/uL (130-400); RED BLOOD COUNT 4.91 10*6/uL (4.50-5.90); RED CELL DISTRI WIDTH 15.4 % (0-14.5); WHITE BLOOD COUNT 7.4 10*3/uL (4.8-10.8)
[2024-02-17 07:56] LABS: ALKALINE PHOSPHATASE 153 U/L (46-116); BUN 28 mg/dl (9-23); CHLORIDE 103 mmol/L (98-107); ETHYL ALCOHOL < 3.0 mg/dl (<3); POTASSIUM 4.4 mmol/L (3.4-5.1); SGPT/ALT 33 U/L (5-49); TOTAL PROTEIN 7.5 gm/dL (6.0-8.0)
[2024-02-17 11:31] VITALS: BP 162/98
== END 2024-02-17 11:30 | disposition home or self-care (01) ==
LOC: ED 06:21
PROVIDERS: Internal Medicine
DX: F43.20 Adjustment disorder, unspecified (principal); I10 Essential (primary) hypertension; I25.2 Old myocardial infarction; K21.9 Gastro-esophageal reflux disease without esophagitis; F32.A Depression, unspecified; J44.9 Chronic obstructive pulmonary disease, unspecified; F17.210 Nicotine dependence, cigarettes, uncomplicated; Z79.899 Other long term (current) drug therapy; Z90.49 Acquired absence of other specified parts of digestive tract; Z98.890 Other specified postprocedural states

== ENCOUNTER 2024-06-25 22:09 | Inpatient (IN) | payer OTHER ==
[~2024-06-25] VITALS: Ht 175.2 cm; Wt 85.1 kg
[2024-06-25 22:13] VITALS: BP 147/71
[2024-06-25 22:40] LABS: BASO # 0.1 10*3/uL (0.0-0.1); BASO % 1.3 % (0.0-1.0); EOS # 0.9 10*3/uL (0.0-0.4); EOS % 16.9 % (1.0-4.0); HEMATOCRIT 43.3 % (42.0-52.0); MEAN CELL VOLUME 85.1 fl (80.0-94.0); MEAN CORPUSCULAR HGB 26.9 pg (27.0-31.0); MEAN CORPUSCULAR HGB CONC 31.6 g/dl (33.0-37.0); MEAN PLATELET VOLUME 9.5 fl (9.6-12.3); MONO # 0.5 10*3/uL (0.1-1.0); MONO % 8.9 % (3.0-9.0); NEUT # 2.9 10*3/uL (2.3-7.9); NEUT % 53.2 % (47.0-73.0); PLATELET COUNT AUTOMATED 195 10*3/uL (130-400); RED BLOOD COUNT 5.09 10*6/uL (4.50-5.90); RED CELL DISTRI WIDTH 17.6 % (0-14.5); WHITE BLOOD COUNT 5.5 10*3/uL (4.8-10.8)
[2024-06-25 23:08] LABS: ALKALINE PHOSPHATASE 148 U/L (46-116); BUN 32 mg/dl (9-23); CHLORIDE 108 mmol/L (98-107); POTASSIUM 4.1 mmol/L (3.4-5.1); SGPT/ALT 17 U/L (5-49); TOTAL PROTEIN 7.1 gm/dL (6.0-8.0)
[2024-06-25 23:09] LABS: ETHYL ALCOHOL < 3.0 mg/dl (<3)
[2024-06-25 23:55] LABS: BILIRUBIN Negative (Negative); BLOOD Negative (Negative); CLARITY Clear (Clear); COLOR Yellow (Yellow); GLUCOSE Negative (Negative); KETONE Negative (Negative); LEUKO ESTERASE Negative (Negative); NITRITE Negative (Negative); SPECIFIC GRAVITY 1.015 (1.001-1.030); UROBILINOGEN 0.2 E.U./dl (0.0-1.0)
[2024-06-26 00:02] LABS: URINE AMPHETAMINES Negative (1000ng/ml); URINE BARBITURATES Negative (200ng/ml); URINE BENZODIAZEPINES Negative (200ng/ml); URINE CANNABINOIDS (THC) Negative (50ng/ml); URINE COCAINE Negative (300ng/ml); URINE METHADONE Negative (300ng/ml); URINE OPIATES Negative (300ng/ml); URINE PHENCYCLIDINE Negative (25ng/ml)
[2024-06-26 00:13] LABS: BACTERIA TRACE; MUCOUS 1+
[2024-06-26] MEDS ORDERED: Bacitracin Zinc 14 GM TUBE T ONE (05:25)
[2024-06-26 09:45] VITALS: BP 134/76
[2024-06-26] MEDS ORDERED: ACETAMINOPHEN 325 MG TAB PO PRN (10:45)
[2024-06-26] MEDS ORDERED: Magnesium Hydroxide 30 ML UDC PO PRN (10:45)
[2024-06-26] MEDS ORDERED: MG-AL HYDROXIDE/SIMETICONE 30 ML UDC PO PRN (10:45)
[2024-06-26] MEDS ORDERED: hydrOXYzine hydrochloride 50 MG/ML VIAL IM PRN (10:50)
[2024-06-26] MEDS ORDERED: LORazepam 1 MG TAB PO PRN (10:50)
[2024-06-26] MEDS ORDERED: Ziprasidone Mesylate 20 MG VIAL IM PRN (10:55)
[2024-06-26 20:00] VITALS: BP 127/82
[2024-06-26] MEDS ORDERED: Mirtazapine 15 MG TAB PO SCH (21:00)
[2024-06-26] MEDS ORDERED: BREXPIPRAZOLE 1 MG TABLET PO SCH (21:00)
[2024-06-27 08:36] VITALS: BP 147/94
[2024-06-27] MEDS ORDERED: ISOSORBIDE MONONITRATE 30 MG TAB PO SCH (09:00)
[2024-06-27] MEDS ORDERED: Vitamin D 1,000 IU TAB (25 MCG) PO SCH (10:00)
[2024-06-27] MEDS ORDERED: ASPIRIN ENTERIC COATED 81 MG TAB PO SCH (10:00)
[2024-06-27] MEDS ORDERED: Pantoprazole Sodium 40 MG TAB PO SCH (10:00)
[2024-06-27] MEDS ORDERED: LISINOPRIL 5 MG TAB PO SCH (10:00)
[2024-06-27] MEDS ORDERED: ATORVASTATIN CALCIUM 40 MG TABLET PO SCH (10:00)
[2024-06-27] MEDS ORDERED: amLODIPine besylate 5 MG TAB PO SCH (10:00)
[2024-06-27] MEDS ORDERED: FUROSEMIDE 40 MG TAB PO SCH (10:00)
[2024-06-27 20:00] VITALS: BP 146/86
[2024-06-28 07:48] VITALS: BP 149/80
[2024-06-28] MEDS ORDERED: REXULTI1 MG PO (12:13)
[2024-06-28] MEDS ORDERED: MIRTAZAPINE15 M2 PO (12:13)
[2024-06-28] MEDS ORDERED: Vitamin D (1,000 UNI PO (12:13)
== END 2024-06-28 13:00 | disposition home or self-care (01) | DRG 751 ==
LOC: ED 22:09 → 3N 06-26 09:46 → EDHOLD 06-26 09:46 → 3N 06-26 11:04
PROVIDERS: Internal Medicine; ADMIT Psychiatry & Neurology Psychiatry; ATTEND Psychiatry & Neurology Psychiatry
PROC: 0HQEXZZ Repair Left Lower Arm Skin, External Approach (ICD-10-PCS; principal; 2024-06-26)
PROC: GZHZZZZ Group Psychotherapy (ICD-10-PCS; 2024-06-26)
PROC: GZ56ZZZ Individual Psychotherapy, Supportive (ICD-10-PCS; 2024-06-26)
DX: F33.2 Major depressive disorder, recurrent severe without psychotic features (principal); F43.21 Adjustment disorder with depressed mood; D64.9 Anemia, unspecified; I25.10 Atherosclerotic heart disease of native coronary artery without angina pectoris; K21.9 Gastro-esophageal reflux disease without esophagitis; N18.31 Chronic kidney disease, stage 3a; I50.22 Chronic systolic (congestive) heart failure; S61.512A Laceration without foreign body of left wrist, initial encounter; T14.91XA Suicide attempt, initial encounter; E78.5 Hyperlipidemia, unspecified; I13.0 Hypertensive heart and chronic kidney disease with heart failure and stage 1 through stage 4 chronic kidney disease, or unspecified chronic kidney disease; J44.9 Chronic obstructive pulmonary disease, unspecified; F41.1 Generalized anxiety disorder; R73.9 Hyperglycemia, unspecified; F17.210 Nicotine dependence, cigarettes, uncomplicated; Z79.899 Other long term (current) drug therapy; Z79.01 Long term (current) use of anticoagulants; Z79.2 Long term (current) use of antibiotics; Z90.49 Acquired absence of other specified parts of digestive tract; Z82.49 Family history of ischemic heart disease and other diseases of the circulatory system; Z87.820 Personal history of traumatic brain injury; I25.2 Old myocardial infarction; Z82.3 Family history of stroke; Z83.3 Family history of diabetes mellitus; Z80.3 Family history of malignant neoplasm of breast; X78.8XXA Intentional self-harm by other sharp object, initial encounter; Y93.89 Activity, other specified; Y92.89 Other specified places as the place of occurrence of the external cause; Y99.8 Other external cause status

== ENCOUNTER 2024-08-01 17:04 | Emergency (ER) | payer OTHER ==
[~2024-08-01] VITALS: Ht 175.2 cm; Wt 83.5 kg
[~2024-08-01 17:04] MED LIST changes: +REXULTI1 MG PO; +Vitamin D (1,000 UNI PO
[2024-08-01 17:05] VITALS: BP 116/59
[2024-08-01] MEDS ORDERED: SODIUM CHLORIDE 0.9% 1,000 ML IV ONE (17:35)
[2024-08-01 17:59] LABS: BASO # 0.1 10*3/uL (0.0-0.1); BASO % 0.8 % (0.0-1.0); EOS # 0.2 10*3/uL (0.0-0.4); EOS % 1.5 % (1.0-4.0); HEMATOCRIT 48.9 % (42.0-52.0); MEAN CELL VOLUME 84.5 fl (80.0-94.0); MEAN CORPUSCULAR HGB 27.5 pg (27.0-31.0); MEAN CORPUSCULAR HGB CONC 32.5 g/dl (33.0-37.0); MEAN PLATELET VOLUME 9.5 fl (9.6-12.3); MONO # 0.7 10*3/uL (0.1-1.0); MONO % 6.3 % (3.0-9.0); NEUT # 9.1 10*3/uL (2.3-7.9); NEUT % 82.5 % (47.0-73.0); PLATELET COUNT AUTOMATED 227 10*3/uL (130-400); RED BLOOD COUNT 5.79 10*6/uL (4.50-5.90); RED CELL DISTRI WIDTH 19.7 % (0-14.5); WHITE BLOOD COUNT 11.1 10*3/uL (4.8-10.8)
[2024-08-01 18:37] LABS: POTASSIUM 4.7 mmol/L (3.4-5.1); TOTAL PROTEIN 7.9 gm/dL (6.0-8.0)
== END 2024-08-01 19:10 | disposition left against medical advice (07) ==
LOC: ED 17:04
PROVIDERS: Nurse Practitioner Family
DX: M54.2 Cervicalgia (principal); R53.1 Weakness; M25.569 Pain in unspecified knee; Z79.899 Other long term (current) drug therapy; Z79.82 Long term (current) use of aspirin; Z90.49 Acquired absence of other specified parts of digestive tract; Z98.890 Other specified postprocedural states; Z87.891 Personal history of nicotine dependence; W18.39XA Other fall on same level, initial encounter; Y93.89 Activity, other specified; Y92.89 Other specified places as the place of occurrence of the external cause; Y99.8 Other external cause status

== ENCOUNTER → 2024-09-10 | Outpatient (CLI) | payer OTHER ==
[~2024-09-10] MED LIST changes: +AMOXICILLIN500 M2 PO
[2024-09-10 10:46] LABS: BASO # 0.1 10*3/uL (0.0-0.1); BASO % 1.1 % (0.0-1.0); EOS # 0.3 10*3/uL (0.0-0.4); EOS % 3.5 % (1.0-4.0); MEAN CELL VOLUME 88.2 fl (80.0-94.0); MEAN CORPUSCULAR HGB 28.8 pg (27.0-31.0); MEAN PLATELET VOLUME 10.2 fl (9.6-12.3); MONO # 0.9 10*3/uL (0.1-1.0); MONO % 11.9 % (3.0-9.0); NEUT # 4.4 10*3/uL (2.3-7.9); NEUT % 61.1 % (47.0-73.0); NUCLEATED RED BLOOD CELL 0.0 % (0.0-0.0); NUCLEATED RED BLOOD CELL 0.0 10*3/uL (0.0-0.0); PLATELET COUNT AUTOMATED 184 10*3/uL (130-400); RED CELL DISTRI WIDTH 19.8 % (0-14.5); RETICULOCYTE % 1.50 % (0.50-2.50)
[2024-09-10 10:50] LABS: BILIRUBIN Negative (Negative); BLOOD Negative (Negative); CLARITY Clear (Clear); COLOR Yellow (Yellow); KETONE Negative (Negative); LEUKO ESTERASE Negative (Negative); NITRITE Negative (Negative); PH 5.5 (4.5-8.0); SPECIFIC GRAVITY 1.010 (1.001-1.030); UROBILINOGEN 0.2 E.U./dl (0.0-1.0)
[2024-09-10 11:04] LABS: BACTERIA TRACE
[2024-09-10 11:35] LABS: VITAMIN D, 25-HYDROXY 66.5 ng/mL (30-100)
[2024-09-10 12:13] LABS: BUN 26.0 mg/dl (9-23); GAMMA GLUTAMYL TRANSFERASE 31.0 U/L (0-73); LDL CHOLESTEROL 90.0 mg/dL (9-159); SGPT/ALT 18.0 U/L (5-49); T3 UPTAKE 26.1 % (22.4-36.7); THYROXINE (T4) TOTAL 8.3 ug/dl (4.5-10.9)
== END | disposition home or self-care (01) ==
LOC: LAB 10:05
PROVIDERS: ATTEND Family Medicine
DX: E78.5 Hyperlipidemia, unspecified (principal); E55.9 Vitamin D deficiency, unspecified; R79.89 Other specified abnormal findings of blood chemistry; R53.83 Other fatigue

== ENCOUNTER 2024-09-12 23:27 | Emergency (ER) | payer OTHER ==
[~2024-09-12] VITALS: Ht 175.2 cm; Wt 83.9 kg
[~2024-09-12 23:27] MED LIST changes: -AMOXICILLIN500 M2 PO
[2024-09-12 23:51] VITALS: BP 152/62
[2024-09-13] MEDS ORDERED: AMOXICILLIN500 M2 PO (02:10)
[2024-09-13] MEDS ORDERED: AMOXICILLIN 500 MG CAP PO ONE (02:15)
== END 2024-09-13 02:20 | disposition home or self-care (01) ==
LOC: ED 23:27
DX: K02.9 Dental caries, unspecified (principal); F32.9 Major depressive disorder, single episode, unspecified; I25.10 Atherosclerotic heart disease of native coronary artery without angina pectoris; J44.9 Chronic obstructive pulmonary disease, unspecified; K21.9 Gastro-esophageal reflux disease without esophagitis; E78.5 Hyperlipidemia, unspecified; I10 Essential (primary) hypertension; I25.2 Old myocardial infarction; Z79.899 Other long term (current) drug therapy; Z79.82 Long term (current) use of aspirin; Z98.890 Other specified postprocedural states; Z90.49 Acquired absence of other specified parts of digestive tract; Z87.891 Personal history of nicotine dependence

== ENCOUNTER 2024-12-16 12:56 | Emergency (ER) | payer OTHER ==
[~2024-12-16] VITALS: Ht 175.2 cm; Wt 62.1 kg
[~2024-12-16 12:56] MED LIST changes: +AMOXICILLIN500 M2 PO
[2024-12-16] MEDS ORDERED: Dicyclomine Hydrochloride 20 MG/10 ML OSYR PO STA (14:34)
[2024-12-16] MEDS ORDERED: MG-AL HYDROXIDE/SIMETICONE 30 ML UDC PO STA (14:34)
[2024-12-16] MEDS ORDERED: SODIUM CHLORIDE 0.9% 1,000 ML IV ONE (14:35)
[2024-12-16] MEDS ORDERED: Ondansetron Hydrochloride 4 MG/2 ML VIAL IV ONE (14:35)
[2024-12-16] MEDS ORDERED: HYDROmorphONE Hydrochloride 0.5 MG/0.5 ML SYRINGE IV ONE (14:35)
[2024-12-16] MEDS ORDERED: IOHEXOL 300 MG/ML 100 ML VIAL IV ONE (14:45)
[2024-12-16 14:55] LABS: BASO # 0.1 10*3/uL (0.0-0.1); BASO % 0.8 % (0.0-1.0); EOS # 0.1 10*3/uL (0.0-0.4); EOS % 1.5 % (1.0-4.0); MEAN CELL VOLUME 96.2 fl (80.0-94.0); MEAN CORPUSCULAR HGB 31.5 pg (27.0-31.0); MEAN PLATELET VOLUME 10.6 fl (9.6-12.3); MONO # 0.5 10*3/uL (0.1-1.0); MONO % 7.3 % (3.0-9.0); NEUT # 5.1 10*3/uL (2.3-7.9); NEUT % 77.4 % (47.0-73.0); NUCLEATED RED BLOOD CELL 0.0 % (0.0-0.0); NUCLEATED RED BLOOD CELL 0.0 10*3/uL (0.0-0.0); PLATELET COUNT AUTOMATED 205 10*3/uL (130-400); RED CELL DISTRI WIDTH 16.2 % (0-14.5)
[2024-12-16 15:17] LABS: BUN 17.0 mg/dl (9-23); SGPT/ALT 9.0 U/L (5-49)
[2024-12-16 18:59] VITALS: BP 166/116
[2024-12-16 19:18] LABS: BILIRUBIN Negative (Negative); BLOOD Negative (Negative); CLARITY Clear (Clear); COLOR Yellow (Yellow); KETONE Negative (Negative); LEUKO ESTERASE Negative (Negative); NITRITE Negative (Negative); PH 5.5 (4.5-8.0); SPECIFIC GRAVITY >= 1.030 (1.001-1.030); UROBILINOGEN 0.2 E.U./dl (0.0-1.0)
[2024-12-16 19:27] LABS: BACTERIA TRACE; RBC 0-2 rbc/hpf (0-2); WBC 0-2 wbc/hpf (0-5)
== END 2024-12-16 19:20 | disposition left against medical advice (07) ==
LOC: ED 12:56
PROVIDERS: Nurse Practitioner Family
DX: K81.0 Acute cholecystitis (principal); J81.1 Chronic pulmonary edema; I11.0 Hypertensive heart disease with heart failure; I50.9 Heart failure, unspecified; K21.9 Gastro-esophageal reflux disease without esophagitis; I25.2 Old myocardial infarction; J44.9 Chronic obstructive pulmonary disease, unspecified; F32.A Depression, unspecified; F17.210 Nicotine dependence, cigarettes, uncomplicated; Z90.49 Acquired absence of other specified parts of digestive tract; Z98.890 Other specified postprocedural states

== ENCOUNTER 2024-12-19 13:09 | Inpatient (IN) | payer OTHER ==
[~2024-12-19] VITALS: Ht 175.3 cm; Wt 147.4 kg
[2024-12-19 13:22] VITALS: BP 161/100
[2024-12-19 14:16] LABS: BASO # 0.1 10*3/uL (0.0-0.1); BASO % 0.8 % (0.0-1.0); EOS # 0.1 10*3/uL (0.0-0.4); EOS % 0.8 % (1.0-4.0); MEAN CELL VOLUME 98.6 fl (80.0-94.0); MEAN CORPUSCULAR HGB 31.0 pg (27.0-31.0); MEAN PLATELET VOLUME 10.7 fl (9.6-12.3); MONO # 0.6 10*3/uL (0.1-1.0); MONO % 7.8 % (3.0-9.0); NEUT # 5.7 10*3/uL (2.3-7.9); NEUT % 80.2 % (47.0-73.0); NUCLEATED RED BLOOD CELL 0.0 % (0.0-0.0); NUCLEATED RED BLOOD CELL 0.0 10*3/uL (0.0-0.0); PLATELET COUNT AUTOMATED 193 10*3/uL (130-400); RED CELL DISTRI WIDTH 16.0 % (0-14.5)
[2024-12-19 14:39] LABS: BUN 18.0 mg/dl (9-23)
[2024-12-19 15:05] LABS: SGPT/ALT 626.0 U/L (5-49)
[2024-12-19 16:50] LABS: URINE AMPHETAMINES Negative (1000ng/ml); URINE BARBITURATES Negative (200ng/ml); URINE BENZODIAZEPINES Negative (200ng/ml); URINE CANNABINOIDS (THC) Negative (50ng/ml); URINE COCAINE Negative (300ng/ml); URINE METHADONE Negative (300ng/ml); URINE OPIATES Negative (300ng/ml); URINE PHENCYCLIDINE Negative (25ng/ml)
[2024-12-19] MEDS ORDERED: Water, Sterile 10 ML VIAL IM PRN (18:00)
[2024-12-19] MEDS ORDERED: LORazepam 1 MG TAB PO PRN (18:00)
[2024-12-19 18:08] VITALS: BP 148/108
[2024-12-19] MEDS ORDERED: hydrOXYzine hydrochloride 50 MG/ML VIAL IM PRN (18:20)
[2024-12-19] MEDS ORDERED: Mirtazapine 15 MG TAB PO SCH (21:00)
[2024-12-19] MEDS ORDERED: BREXPIPRAZOLE 1 MG TABLET PO SCH (21:00)
[2024-12-19 21:40] VITALS: BP 153/94
[2024-12-19] MEDS ORDERED: ASPIRIN, CHEWABLE 81 MG TAB PO ONE (22:15)
[2024-12-19] MEDS ORDERED: ATORVASTATIN CALCIUM 80 MG TAB PO SCH (22:21)
[2024-12-19] MEDS ORDERED: SODIUM CHLORIDE 0.9% 100 ML BAG IV ONE (22:35)
[2024-12-19] MEDS ORDERED: IOHEXOL 350 MG/ML 100 ML VIAL IV ONE (22:35)
[2024-12-19] MEDS ORDERED: ATORVASTATIN CALCIUM 80 MG TAB PO ONE (22:40)
[2024-12-19] MEDS ORDERED: SODIUM CHLORIDE 0.9% 10 ML SYR IV PRN (23:30)
[2024-12-20 08:00] VITALS: BP 143/93
[2024-12-20] MEDS ORDERED: ATORVASTATIN CALCIUM 80 MG TAB PO SCH (09:00)
[2024-12-20] MEDS ORDERED: ISOSORBIDE MONONITRATE 30 MG TAB PO SCH (09:00)
[2024-12-20] MEDS ORDERED: ASPIRIN ENTERIC COATED 81 MG TAB PO SCH (09:00)
[2024-12-20] MEDS ORDERED: Vitamin D 1,000 IU TAB (25 MCG) PO SCH (09:00)
[2024-12-20] MEDS ORDERED: FUROSEMIDE 40 MG TAB PO SCH (09:00)
[2024-12-20] MEDS ORDERED: LISINOPRIL 5 MG TAB PO SCH (09:00)
[2024-12-20] MEDS ORDERED: ATORVASTATIN CALCIUM 40 MG TABLET PO SCH ×2 (09:00)
[2024-12-20] MEDS ORDERED: MG-AL HYDROXIDE/SIMETICONE 30 ML UDC PO PRN (10:15)
[2024-12-20] MEDS ORDERED: ACETAMINOPHEN 325 MG TAB PO PRN (10:15)
[2024-12-20] MEDS ORDERED: Menthol/Zinc Oxide 4 GM THIN T PRN (10:15)
[2024-12-20] MEDS ORDERED: SODIUM CHLORIDE 0.9% 100 ML BAG IV ONE (14:25)
[2024-12-20] MEDS ORDERED: IOHEXOL 350 MG/ML 100 ML VIAL IV ONE (14:25)
[2024-12-20 17:29] VITALS: BP 127/65
[2024-12-21 06:10] VITALS: BP 127/82
[2024-12-21 06:22] LABS: BASO # 0.1 10*3/uL (0.0-0.1); BASO % 0.8 % (0.0-1.0); EOS # 0.4 10*3/uL (0.0-0.4); EOS % 5.2 % (1.0-4.0); MEAN CELL VOLUME 97.3 fl (80.0-94.0); MEAN CORPUSCULAR HGB 30.6 pg (27.0-31.0); MEAN PLATELET VOLUME 11.6 fl (9.6-12.3); MONO # 0.8 10*3/uL (0.1-1.0); MONO % 9.5 % (3.0-9.0); NEUT # 5.9 10*3/uL (2.3-7.9); NEUT % 70.1 % (47.0-73.0); NUCLEATED RED BLOOD CELL 0.0 10*3/uL (0.0-0.0); NUCLEATED RED BLOOD CELL 0.2 % (0.0-0.0); PLATELET COUNT AUTOMATED 221 10*3/uL (130-400); RED CELL DISTRI WIDTH 16.5 % (0-14.5)
[2024-12-21 07:06] LABS: BUN 22.0 mg/dl (9-23); LDL CHOLESTEROL 81.0 mg/dL (9-159); SGPT/ALT 789.0 U/L (5-49)
[2024-12-21 09:43] LABS: VITAMIN D, 25-HYDROXY 71.5 ng/mL (30-100)
== END 2024-12-21 17:15 | disposition admitted as inpatient to this hospital (09) | DRG 750 ==
LOC: ED 13:09 → 3N 16:36
PROVIDERS: Student in an Organized Health Care Education/Training Program; ADMIT Psychiatry & Neurology Psychiatry; ATTEND Psychiatry & Neurology Psychiatry
PROC: GZHZZZZ Group Psychotherapy (ICD-10-PCS; principal; 2024-12-19)
PROC: GZ51ZZZ Individual Psychotherapy, Behavioral (ICD-10-PCS; 2024-12-19)
DX: F33.3 Major depressive disorder, recurrent, severe with psychotic symptoms (principal); F43.21 Adjustment disorder with depressed mood; R18.8 Other ascites; D53.9 Nutritional anemia, unspecified; Z87.891 Personal history of nicotine dependence; Z80.3 Family history of malignant neoplasm of breast; Z82.49 Family history of ischemic heart disease and other diseases of the circulatory system; Z83.3 Family history of diabetes mellitus; R74.01 Elevation of levels of liver transaminase levels; K40.90 Unilateral inguinal hernia, without obstruction or gangrene, not specified as recurrent; E78.5 Hyperlipidemia, unspecified; J44.89 Other specified chronic obstructive pulmonary disease; I13.0 Hypertensive heart and chronic kidney disease with heart failure and stage 1 through stage 4 chronic kidney disease, or unspecified chronic kidney disease; N18.30 Chronic kidney disease, stage 3 unspecified; R73.9 Hyperglycemia, unspecified; K80.20 Calculus of gallbladder without cholecystitis without obstruction; F41.1 Generalized anxiety disorder; K76.0 Fatty (change of) liver, not elsewhere classified; K57.30 Diverticulosis of large intestine without perforation or abscess without bleeding; I25.10 Atherosclerotic heart disease of native coronary artery without angina pectoris; I50.42 Chronic combined systolic (congestive) and diastolic (congestive) heart failure

== ENCOUNTER 2024-12-21 16:21 | Inpatient (IN) | payer OTHER ==
[~2024-12-21] VITALS: Ht 175.3 cm; Wt 86.4 kg
[2024-12-21 17:25] VITALS: BP 130/80
[2024-12-21] MEDS ORDERED: Acetaminophen/Hydrocodone 5 MG/325 MG TABLET PO PRN (18:10)
[2024-12-21] MEDS ORDERED: TEMAZEPAM 15 MG CAP PO PRN (18:10)
[2024-12-21] MEDS ORDERED: BISACODYL 5 MG TAB PO PRN (18:10)
[2024-12-21] MEDS ORDERED: FUROSEMIDE 20 MG/2 ML VIAL IV SCH (19:10)
[2024-12-21 20:00] VITALS: BP 129/73
[2024-12-21] MEDS ORDERED: BREXPIPRAZOLE 1 MG TABLET PO SCH (21:00)
[2024-12-21] MEDS ORDERED: Mirtazapine 15 MG TAB PO SCH (21:00)
[2024-12-22] VITALS: BP 139/66
[2024-12-22 05:53] LABS: BUN 21.0 mg/dl (9-23); SGPT/ALT 584.0 U/L (5-49)
[2024-12-22 06:24] LABS: BASO # 0.1 10*3/uL (0.0-0.1); BASO % 0.8 % (0.0-1.0); EOS # 0.6 10*3/uL (0.0-0.4); EOS % 7.7 % (1.0-4.0); MEAN CELL VOLUME 95.7 fl (80.0-94.0); MEAN CORPUSCULAR HGB 30.5 pg (27.0-31.0); MEAN PLATELET VOLUME 11.6 fl (9.6-12.3); MONO # 0.8 10*3/uL (0.1-1.0); MONO % 10.7 % (3.0-9.0); NEUT # 4.7 10*3/uL (2.3-7.9); NEUT % 64.4 % (47.0-73.0); NUCLEATED RED BLOOD CELL 0.0 % (0.0-0.0); NUCLEATED RED BLOOD CELL 0.0 10*3/uL (0.0-0.0); PLATELET COUNT AUTOMATED 205 10*3/uL (130-400); RED CELL DISTRI WIDTH 16.2 % (0-14.5)
[2024-12-22 08:00] VITALS: BP 164/74
[2024-12-22] MEDS ORDERED: FUROSEMIDE 40 MG TAB PO SCH (10:00)
[2024-12-22] MEDS ORDERED: LISINOPRIL 5 MG TAB PO SCH (10:00)
[2024-12-22] MEDS ORDERED: Vitamin D 1,000 IU TAB (25 MCG) PO SCH (10:00)
[2024-12-22] MEDS ORDERED: ISOSORBIDE MONONITRATE 30 MG TAB PO SCH (10:00)
[2024-12-22] MEDS ORDERED: ASPIRIN ENTERIC COATED 81 MG TAB PO SCH (10:00)
[2024-12-22] MEDS ORDERED: ATORVASTATIN CALCIUM 40 MG TABLET PO SCH (10:00)
[2024-12-22 12:00] VITALS: BP 150/73
[2024-12-22 16:00] VITALS: BP 135/69
[2024-12-22 20:00] VITALS: BP 141/75
[2024-12-23] VITALS: BP 146/74
[2024-12-23 07:20] LABS: BUN 19.0 mg/dl (9-23); SGPT/ALT 452.0 U/L (5-49)
[2024-12-23 08:00] VITALS: BP 175/97
[2024-12-23 12:00] VITALS: BP 142/77
[2024-12-23 16:00] VITALS: BP 147/72
[2024-12-23 20:00] VITALS: BP 137/83
[2024-12-24] VITALS: BP 149/81
[2024-12-24 06:43] LABS: BUN 22.0 mg/dl (9-23)
[2024-12-24 06:47] LABS: BASO # 0.1 10*3/uL (0.0-0.1); BASO % 1.2 % (0.0-1.0); EOS # 0.6 10*3/uL (0.0-0.4); EOS % 9.5 % (1.0-4.0); MEAN CELL VOLUME 94.5 fl (80.0-94.0); MEAN CORPUSCULAR HGB 30.0 pg (27.0-31.0); MEAN PLATELET VOLUME 10.5 fl (9.6-12.3); MONO # 0.9 10*3/uL (0.1-1.0); MONO % 15.1 % (3.0-9.0); NEUT # 3.2 10*3/uL (2.3-7.9); NEUT % 55.4 % (47.0-73.0); NUCLEATED RED BLOOD CELL 0.0 % (0.0-0.0); NUCLEATED RED BLOOD CELL 0.0 10*3/uL (0.0-0.0); PLATELET COUNT AUTOMATED 264 10*3/uL (130-400); RED CELL DISTRI WIDTH 15.6 % (0-14.5)
[2024-12-24 08:00] VITALS: BP 161/73
[2024-12-24 12:00] VITALS: BP 132/70
== END 2024-12-24 15:06 | disposition home or self-care (01) | DRG 194 ==
LOC: 5E 16:21
PROVIDERS: Student in an Organized Health Care Education/Training Program; ADMIT Internal Medicine; ATTEND Internal Medicine
DX: I13.0 Hypertensive heart and chronic kidney disease with heart failure and stage 1 through stage 4 chronic kidney disease, or unspecified chronic kidney disease (principal); I50.23 Acute on chronic systolic (congestive) heart failure; F33.3 Major depressive disorder, recurrent, severe with psychotic symptoms; J91.8 Pleural effusion in other conditions classified elsewhere; N17.9 Acute kidney failure, unspecified; E78.5 Hyperlipidemia, unspecified; J44.89 Other specified chronic obstructive pulmonary disease; I25.10 Atherosclerotic heart disease of native coronary artery without angina pectoris; N18.30 Chronic kidney disease, stage 3 unspecified; K57.30 Diverticulosis of large intestine without perforation or abscess without bleeding; F41.1 Generalized anxiety disorder; R73.9 Hyperglycemia, unspecified; D53.9 Nutritional anemia, unspecified; F43.21 Adjustment disorder with depressed mood; K21.9 Gastro-esophageal reflux disease without esophagitis; R74.01 Elevation of levels of liver transaminase levels; Z90.49 Acquired absence of other specified parts of digestive tract; Z87.891 Personal history of nicotine dependence; Z82.49 Family history of ischemic heart disease and other diseases of the circulatory system; Z80.3 Family history of malignant neoplasm of breast; Z79.82 Long term (current) use of aspirin; Z79.4 Long term (current) use of insulin

== ENCOUNTER 2024-12-25 15:27 | Emergency (ER) | payer OTHER ==
[~2024-12-25] VITALS: Ht 175.3 cm; Wt 83.9 kg
[2024-12-25 16:11] LABS: BILIRUBIN Negative (Negative); BLOOD Negative (Negative); CLARITY Clear (Clear); COLOR Yellow (Yellow); KETONE Negative (Negative); LEUKO ESTERASE Negative (Negative); NITRITE Negative (Negative); PH 6.0 (4.5-8.0); SPECIFIC GRAVITY 1.010 (1.001-1.030); UROBILINOGEN 1.0 E.U./dl (0.0-1.0)
[2024-12-25 16:22] LABS: BASO # 0.1 10*3/uL (0.0-0.1); BASO % 1.0 % (0.0-1.0); EOS # 0.2 10*3/uL (0.0-0.4); EOS % 2.6 % (1.0-4.0); MEAN CELL VOLUME 94.4 fl (80.0-94.0); MEAN CORPUSCULAR HGB 29.8 pg (27.0-31.0); MEAN PLATELET VOLUME 10.0 fl (9.6-12.3); MONO # 0.7 10*3/uL (0.1-1.0); MONO % 10.0 % (3.0-9.0); NEUT # 5.2 10*3/uL (2.3-7.9); NEUT % 74.4 % (47.0-73.0); NUCLEATED RED BLOOD CELL 0.0 % (0.0-0.0); NUCLEATED RED BLOOD CELL 0.0 10*3/uL (0.0-0.0); PLATELET COUNT AUTOMATED 313 10*3/uL (130-400); RED CELL DISTRI WIDTH 15.6 % (0-14.5)
[2024-12-25 16:22] LABS: BACTERIA TRACE
[2024-12-25 16:24] LABS: URINE AMPHETAMINES Negative (1000ng/ml); URINE BARBITURATES Negative (200ng/ml); URINE BENZODIAZEPINES Negative (200ng/ml); URINE CANNABINOIDS (THC) Negative (50ng/ml); URINE COCAINE Negative (300ng/ml); URINE METHADONE Negative (300ng/ml); URINE OPIATES Negative (300ng/ml); URINE PHENCYCLIDINE Negative (25ng/ml)
[2024-12-25 17:09] LABS: BUN 23 mg/dl (9-23); ETHYL ALCOHOL 6.9 mg/dl (<3); SGPT/ALT 259 U/L (5-49)
[2024-12-25 19:29] VITALS: BP 152/76
== END 2024-12-25 20:15 | disposition home or self-care (01) ==
LOC: ED 15:27
PROVIDERS: Emergency Medicine
DX: F43.21 Adjustment disorder with depressed mood (principal); I10 Essential (primary) hypertension; I25.2 Old myocardial infarction; K21.9 Gastro-esophageal reflux disease without esophagitis; F32.A Depression, unspecified; J44.9 Chronic obstructive pulmonary disease, unspecified

== ENCOUNTER 2025-01-02 13:25 | Emergency (ER) | payer OTHER ==
[2025-01-02 13:29] VITALS: BP 134/69
[2025-01-02 13:55] LABS: BASO # 0.1 10*3/uL (0.0-0.1); BASO % 0.7 % (0.0-1.0); EOS # 0.1 10*3/uL (0.0-0.4); EOS % 0.6 % (1.0-4.0); MEAN CELL VOLUME 93.8 fl (80.0-94.0); MEAN CORPUSCULAR HGB 30.3 pg (27.0-31.0); MEAN PLATELET VOLUME 10.9 fl (9.6-12.3); MONO # 0.4 10*3/uL (0.1-1.0); MONO % 5.5 % (3.0-9.0); NEUT # 6.5 10*3/uL (2.3-7.9); NEUT % 80.9 % (47.0-73.0); NUCLEATED RED BLOOD CELL 0.0 % (0.0-0.0); NUCLEATED RED BLOOD CELL 0.0 10*3/uL (0.0-0.0); PLATELET COUNT AUTOMATED 256 10*3/uL (130-400); RED CELL DISTRI WIDTH 15.6 % (0-14.5)
[2025-01-02 14:06] LABS: BILIRUBIN Negative (Negative); BLOOD Negative (Negative); CLARITY Clear (Clear); COLOR Yellow (Yellow); KETONE Negative (Negative); LEUKO ESTERASE Negative (Negative); NITRITE Negative (Negative); PH 5.0 (4.5-8.0); SPECIFIC GRAVITY 1.020 (1.001-1.030); UROBILINOGEN 1.0 E.U./dl (0.0-1.0)
[2025-01-02 14:13] LABS: MUCOUS 1+; URINE AMPHETAMINES Negative (1000ng/ml); URINE BARBITURATES Negative (200ng/ml); URINE BENZODIAZEPINES Negative (200ng/ml); URINE CANNABINOIDS (THC) Negative (50ng/ml); URINE COCAINE Negative (300ng/ml); URINE METHADONE Negative (300ng/ml); URINE OPIATES Negative (300ng/ml); URINE PHENCYCLIDINE Negative (25ng/ml)
[2025-01-02 14:18] LABS: BUN 17 mg/dl (9-23)
[2025-01-02 14:27] LABS: ETHYL ALCOHOL < 3.0 mg/dl (<3)
[2025-01-02 14:41] LABS: ACT PARTIAL THROMBO TIME 28.2 SECONDS (20.0-32.1)
== END 2025-01-02 16:48 | disposition home or self-care (01) ==
LOC: ED 13:25
PROVIDERS: Emergency Medicine
DX: F43.20 Adjustment disorder, unspecified (principal); Z79.899 Other long term (current) drug therapy; Z79.82 Long term (current) use of aspirin; Z98.890 Other specified postprocedural states; Z90.49 Acquired absence of other specified parts of digestive tract; Z87.891 Personal history of nicotine dependence

== ENCOUNTER 2025-01-17 18:19 | Inpatient (IN) | payer OTHER ==
[~2025-01-17] VITALS: Ht 175.3 cm; Wt 84.0 kg
[~2025-01-17 18:19] MED LIST changes: +ALDACTONE25 MG PO; +BUSPIRONE HCL30 MG PO; +JARDIANCE10 MG PO; +LISINOPRIL10 M1 PO
[2025-01-17 18:28] VITALS: BP 97/46
[2025-01-17 20:28] LABS: BASO # 0.1 10*3/uL (0.0-0.1); BASO % 0.9 % (0.0-1.0); EOS # 0.1 10*3/uL (0.0-0.4); EOS % 0.9 % (1.0-4.0); MEAN CELL VOLUME 96.0 fl (80.0-94.0); MEAN CORPUSCULAR HGB 29.4 pg (27.0-31.0); MEAN PLATELET VOLUME 10.8 fl (9.6-12.3); MONO # 0.7 10*3/uL (0.1-1.0); MONO % 7.4 % (3.0-9.0); NEUT # 7.9 10*3/uL (2.3-7.9); NEUT % 80.9 % (47.0-73.0); NUCLEATED RED BLOOD CELL 0.0 % (0.0-0.0); NUCLEATED RED BLOOD CELL 0.0 10*3/uL (0.0-0.0); PLATELET COUNT AUTOMATED 227 10*3/uL (130-400); RED CELL DISTRI WIDTH 16.7 % (0-14.5)
[2025-01-17 20:47] LABS: BUN 30.0 mg/dl (9-23)
[2025-01-17 21:28] LABS: BILIRUBIN Negative (Negative); BLOOD Negative (Negative); CLARITY Clear (Clear); COLOR Yellow (Yellow); KETONE Negative (Negative); LEUKO ESTERASE Negative (Negative); NITRITE Negative (Negative); PH 5.0 (4.5-8.0); SPECIFIC GRAVITY 1.015 (1.001-1.030); UROBILINOGEN 1.0 E.U./dl (0.0-1.0)
[2025-01-17 21:52] LABS: BACTERIA 2+; CALCIUM OXALATE CRYSTALS 1+
[2025-01-18] MEDS ORDERED: SODIUM CHLORIDE 0.9% 1,000 ML IV ONE ×2 (05:15→06:05)
[2025-01-18 06:23] VITALS: BP 126/80
[2025-01-18 09:40] VITALS: BP 114/69
[2025-01-18] MEDS ORDERED: Ondansetron Hydrochloride 4 MG/2 ML VIAL IV PRN (09:40)
[2025-01-18] MEDS ORDERED: ACETAMINOPHEN 325 MG TAB PO PRN (09:40)
[2025-01-18] MEDS ORDERED: ATORVASTATIN CALCIUM 40 MG TABLET PO SCH (10:00)
[2025-01-18] MEDS ORDERED: EMPAGLIFLOZIN 10 MG TABLET PO SCH (10:00)
[2025-01-18] MEDS ORDERED: ASPIRIN ENTERIC COATED 81 MG TAB PO SCH (10:00)
[2025-01-18] MEDS ORDERED: METOPROLOL SUCCINATE XR 100 MG TAB PO SCH (10:00)
[2025-01-18] MEDS ORDERED: ISOSORBIDE MONONITRATE 30 MG TAB PO SCH (10:00)
[2025-01-18] MEDS ORDERED: busPIRone Hydrochloride 15 MG TAB PO SCH (10:00)
[2025-01-18 11:35] VITALS: BP 120/71
[2025-01-18] MEDS ORDERED: Cyclobenzaprine Hydrochlorid 10 MG TAB PO PRN (12:35)
[2025-01-18 16:00] VITALS: BP 106/52; BP 109/58
[2025-01-18 20:00] VITALS: BP 132/89
[2025-01-19] VITALS: BP 123/86
[2025-01-19 06:20] LABS: BASO # 0.1 10*3/uL (0.0-0.1); BASO % 1.0 % (0.0-1.0); EOS # 0.2 10*3/uL (0.0-0.4); EOS % 2.5 % (1.0-4.0); MEAN CELL VOLUME 95.6 fl (80.0-94.0); MEAN CORPUSCULAR HGB 29.4 pg (27.0-31.0); MEAN PLATELET VOLUME 11.3 fl (9.6-12.3); MONO # 0.6 10*3/uL (0.1-1.0); MONO % 8.1 % (3.0-9.0); NEUT # 4.8 10*3/uL (2.3-7.9); NEUT % 70.2 % (47.0-73.0); NUCLEATED RED BLOOD CELL 0.0 % (0.0-0.0); NUCLEATED RED BLOOD CELL 0.0 10*3/uL (0.0-0.0); PLATELET COUNT AUTOMATED 209 10*3/uL (130-400); RED CELL DISTRI WIDTH 16.9 % (0-14.5)
[2025-01-19 06:21] LABS: BUN 36.0 mg/dl (9-23); SGPT/ALT 17.0 U/L (5-49)
[2025-01-19 08:00] VITALS: BP 133/91
[2025-01-19 12:00] VITALS: BP 126/83
[2025-01-19 16:00] VITALS: BP 124/80
[2025-01-19 20:00] VITALS: BP 126/86
[2025-01-20] VITALS: BP 118/79
[2025-01-20 06:09] LABS: BUN 35.0 mg/dl (9-23)
[2025-01-20] MEDS ORDERED: Regadenoson 0.4 MG/5 ML SYR IV ONE (07:02)
[2025-01-20 12:00] VITALS: BP 139/101
[2025-01-20] MEDS ORDERED: ASPIRIN ADULT L81 M2 PO (14:23)
[2025-01-20] MEDS ORDERED: METOPROLOL SUC100 M1 PO (14:23)
[2025-01-20] MEDS ORDERED: JARDIANCE10 MG PO (14:23)
[2025-01-20] MEDS ORDERED: FUROSEMIDE40 MG PO (14:23)
[2025-01-20] MEDS ORDERED: BUSPIRONE HCL30 MG PO (14:23)
[2025-01-20] MEDS ORDERED: PANTOPRAZOLE SO40 MG PO (14:23)
[2025-01-20] MEDS ORDERED: VITAMIN D350 MCG PO (14:23)
[2025-01-20] MEDS ORDERED: CYCLOBENZAPRINE10 MG PO (14:23)
[2025-01-20] MEDS ORDERED: ALDACTONE25 MG PO (14:23)
[2025-01-20] MEDS ORDERED: ATORVASTATIN CA40 M1 PO (14:23)
[2025-01-20] MEDS ORDERED: ISOSORBIDE MONO10 MG PO (14:23)
[2025-01-20 16:00] VITALS: BP 143/99
[2025-01-20 20:00] VITALS: BP 138/90
[2025-01-21] VITALS: BP 148/94
[2025-01-21 06:39] LABS: BUN 27.0 mg/dl (9-23)
[2025-01-21 08:00] VITALS: BP 144/93
== END 2025-01-21 08:49 | disposition home or self-care (01) | DRG 198 ==
LOC: ED 18:19 → EDHOLD 01-18 06:16 → 5E 01-18 06:16
PROVIDERS: Emergency Medicine; Registered Nurse; ADMIT Student in an Organized Health Care Education/Training Program; ATTEND Student in an Organized Health Care Education/Training Program
PROC: 4A02XM4 Measurement of Cardiac Total Activity, External Approach (ICD-10-PCS; principal; 2025-01-20)
PROC: 3E073KZ Introduction of Other Diagnostic Substance into Coronary Artery, Percutaneous Approach (ICD-10-PCS; 2025-01-20)
DX: I25.10 Atherosclerotic heart disease of native coronary artery without angina pectoris (principal); N17.0 Acute kidney failure with tubular necrosis; K21.9 Gastro-esophageal reflux disease without esophagitis; E87.1 Hypo-osmolality and hyponatremia; J44.9 Chronic obstructive pulmonary disease, unspecified; I13.0 Hypertensive heart and chronic kidney disease with heart failure and stage 1 through stage 4 chronic kidney disease, or unspecified chronic kidney disease; F17.210 Nicotine dependence, cigarettes, uncomplicated; Z59.00 Homelessness unspecified; D64.9 Anemia, unspecified; R73.9 Hyperglycemia, unspecified; R80.9 Proteinuria, unspecified; R82.71 Bacteriuria; R20.0 Anesthesia of skin; N18.30 Chronic kidney disease, stage 3 unspecified; K57.30 Diverticulosis of large intestine without perforation or abscess without bleeding; F41.1 Generalized anxiety disorder; I50.42 Chronic combined systolic (congestive) and diastolic (congestive) heart failure; E78.5 Hyperlipidemia, unspecified; F33.2 Major depressive disorder, recurrent severe without psychotic features; F43.21 Adjustment disorder with depressed mood; Z79.899 Other long term (current) drug therapy; I25.2 Old myocardial infarction; Z79.01 Long term (current) use of anticoagulants; Z79.2 Long term (current) use of antibiotics; Z90.49 Acquired absence of other specified parts of digestive tract; Z82.3 Family history of stroke; Z83.3 Family history of diabetes mellitus; Z95.5 Presence of coronary angioplasty implant and graft; Z82.49 Family history of ischemic heart disease and other diseases of the circulatory system; Z80.3 Family history of malignant neoplasm of breast

== ENCOUNTER 2025-01-24 19:06 | Emergency (ER) | payer OTHER ==
[~2025-01-24] VITALS: Ht 175.2 cm; Wt 72.6 kg
[2025-01-24 19:16] VITALS: BP 144/88
[2025-01-24 19:41] LABS: BASO # 0.1 10*3/uL (0.0-0.1); BASO % 1.1 % (0.0-1.0); EOS # 0.0 10*3/uL (0.0-0.4); EOS % 0.5 % (1.0-4.0); MEAN CELL VOLUME 90.1 fl (80.0-94.0); MEAN CORPUSCULAR HGB 28.3 pg (27.0-31.0); MEAN PLATELET VOLUME 10.9 fl (9.6-12.3); MONO # 0.9 10*3/uL (0.1-1.0); MONO % 10.0 % (3.0-9.0); NEUT # 6.7 10*3/uL (2.3-7.9); NEUT % 78.2 % (47.0-73.0); NUCLEATED RED BLOOD CELL 0.0 % (0.0-0.0); NUCLEATED RED BLOOD CELL 0.0 10*3/uL (0.0-0.0); PLATELET COUNT AUTOMATED 274 10*3/uL (130-400); RED CELL DISTRI WIDTH 17.2 % (0-14.5)
[2025-01-24 20:10] LABS: BUN 17.0 mg/dl (9-23)
== END 2025-01-24 20:43 | disposition home or self-care (01) ==
LOC: ED
PROVIDERS: Internal Medicine
DX: Z00.00 Encounter for general adult medical examination without abnormal findings (principal); I10 Essential (primary) hypertension; I25.2 Old myocardial infarction; K21.9 Gastro-esophageal reflux disease without esophagitis; F32.A Depression, unspecified; J44.9 Chronic obstructive pulmonary disease, unspecified; Z98.890 Other specified postprocedural states; Z90.49 Acquired absence of other specified parts of digestive tract

== ENCOUNTER 2025-01-26 09:38 | Emergency (ER) | payer OTHER ==
[~2025-01-26] VITALS: Wt 61.2 kg
[2025-01-26 09:54] VITALS: BP 126/80
[2025-01-26] MEDS ORDERED: Albuterol Sulf/Ipratropium 3 ML VIAL NEB ONE (09:55)
[2025-01-26 10:12] LABS: MEAN CELL VOLUME 91.6 fl (80.0-94.0); MEAN CORPUSCULAR HGB 28.4 pg (27.0-31.0); MEAN PLATELET VOLUME 10.5 fl (9.6-12.3); NUCLEATED RED BLOOD CELL 0.0 % (0.0-0.0); NUCLEATED RED BLOOD CELL 0.0 10*3/uL (0.0-0.0); PLATELET COUNT AUTOMATED 242 10*3/uL (130-400); RED CELL DISTRI WIDTH 17.0 % (0-14.5)
[2025-01-26 10:15] LABS: MANUAL DIFF REFLEX YES
[2025-01-26 10:30] LABS: BUN 13.0 mg/dl (9-23)
[2025-01-26 10:49] LABS: PLATELET SUFFICIENCY NORMAL (NORMAL)
[2025-01-26] MEDS ORDERED: VENT7GM INH (11:18)
[2025-01-26] MEDS ORDERED: LEVOFLOXACIN750 M2 PO (11:18)
[2025-01-26] MEDS ORDERED: PREDNISONE20 M1 PO (11:18)
== END 2025-01-26 11:16 | disposition home or self-care (01) ==
LOC: ED 09:38
PROVIDERS: Emergency Medicine
DX: J44.1 Chronic obstructive pulmonary disease with (acute) exacerbation (principal); J18.9 Pneumonia, unspecified organism; I10 Essential (primary) hypertension; I25.2 Old myocardial infarction; K21.9 Gastro-esophageal reflux disease without esophagitis; F32.A Depression, unspecified; Z98.890 Other specified postprocedural states; Z90.49 Acquired absence of other specified parts of digestive tract

== ENCOUNTER 2025-02-01 10:46 | Inpatient (IN) | payer OTHER ==
[~2025-02-01] VITALS: Ht 175.2 cm; Wt 85.4 kg
[~2025-02-01 10:46] MED LIST changes: +LEVOFLOXACIN750 M2 PO; +PREDNISONE20 M1 PO; +VENT7GM INH
[2025-02-01 11:07] VITALS: BP 148/81
[2025-02-01 12:04] LABS: BASO # 0.0 10*3/uL (0.0-0.1); BASO % 0.3 % (0.0-1.0); EOS # 0.1 10*3/uL (0.0-0.4); EOS % 1.0 % (1.0-4.0); MEAN CELL VOLUME 88.1 fl (80.0-94.0); MEAN CORPUSCULAR HGB 27.4 pg (27.0-31.0); MEAN PLATELET VOLUME 9.7 fl (9.6-12.3); MONO # 0.9 10*3/uL (0.1-1.0); MONO % 9.6 % (3.0-9.0); NEUT # 7.7 10*3/uL (2.3-7.9); NEUT % 82.1 % (47.0-73.0); NUCLEATED RED BLOOD CELL 0.0 % (0.0-0.0); NUCLEATED RED BLOOD CELL 0.0 10*3/uL (0.0-0.0); PLATELET COUNT AUTOMATED 246 10*3/uL (130-400); RED CELL DISTRI WIDTH 17.3 % (0-14.5)
[2025-02-01 12:33] LABS: BUN 12 mg/dl (9-23); SGPT/ALT 19 U/L (5-49)
[2025-02-01] MEDS ORDERED: IOHEXOL 350 MG/ML 100 ML VIAL IV ONE (12:55)
[2025-02-01] MEDS ORDERED: SODIUM CHLORIDE 0.9% 100 ML BAG IV ONE (12:55)
[2025-02-01] MEDS ORDERED: Acetaminophen/Hydrocodone 5 MG/325 MG TABLET PO PRN (16:40)
[2025-02-01] MEDS ORDERED: ACETAMINOPHEN 650 MG SUPP R PRN (16:40)
[2025-02-01] MEDS ORDERED: Ondansetron Hydrochloride 4 MG/2 ML VIAL IV PRN (16:40)
[2025-02-01] MEDS ORDERED: BISACODYL 10 MG SUPP R PRN (16:40)
[2025-02-01] MEDS ORDERED: ACETAMINOPHEN 325 MG TAB PO PRN (16:40)
[2025-02-01] MEDS ORDERED: BISACODYL 5 MG TAB PO PRN (16:40)
[2025-02-01] MEDS ORDERED: Albuterol Sulf/Ipratropium 3 ML VIAL NEB PRN (16:55)
[2025-02-01 18:00] VITALS: BP 152/95
[2025-02-01] MEDS ORDERED: AMLODIPINE BESYL5 MG PO (18:39)
[2025-02-01] MEDS ORDERED: Cyclobenzaprine Hydrochlorid 10 MG TAB PO PRN (18:50)
[2025-02-01 20:00] VITALS: BP 129/61
[2025-02-01] MEDS ORDERED: GUAIFENESIN 600 MG TAB ER PO SCH (22:00)
[2025-02-01] MEDS ORDERED: busPIRone Hydrochloride 15 MG TAB PO SCH (22:00)
[2025-02-02] VITALS: BP 116/63
[2025-02-02 04:57] LABS: BUN 9 mg/dl (9-23)
[2025-02-02] MEDS ORDERED: POTASSIUM CHLORIDE 20 MEQ TAB PO ONE (07:50)
[2025-02-02 08:00] VITALS: BP 124/66
[2025-02-02 08:11] LABS: BASO # 0.0 10*3/uL (0.0-0.1); BASO % 0.4 % (0.0-1.0); EOS # 0.2 10*3/uL (0.0-0.4); EOS % 2.2 % (1.0-4.0); MEAN CELL VOLUME 89.2 fl (80.0-94.0); MEAN CORPUSCULAR HGB 27.6 pg (27.0-31.0); MEAN PLATELET VOLUME 9.6 fl (9.6-12.3); MONO # 0.8 10*3/uL (0.1-1.0); MONO % 10.1 % (3.0-9.0); NEUT # 5.9 10*3/uL (2.3-7.9); NEUT % 78.4 % (47.0-73.0); NUCLEATED RED BLOOD CELL 0.0 % (0.0-0.0); NUCLEATED RED BLOOD CELL 0.0 10*3/uL (0.0-0.0); PLATELET COUNT AUTOMATED 246 10*3/uL (130-400); RED CELL DISTRI WIDTH 17.2 % (0-14.5)
[2025-02-02 08:31] VITALS: BP 150/86
[2025-02-02] MEDS ORDERED: SPIRONOLACTONE 25 MG TAB PO SCH (10:00)
[2025-02-02] MEDS ORDERED: LISINOPRIL 10 MG TAB PO SCH (10:00)
[2025-02-02] MEDS ORDERED: FUROSEMIDE 40 MG TAB PO SCH (10:00)
[2025-02-02] MEDS ORDERED: ATORVASTATIN CALCIUM 40 MG TABLET PO SCH (10:00)
[2025-02-02] MEDS ORDERED: Cholecalciferol 2,000 UNIT TABLET (50 MCG) PO SCH (10:00)
[2025-02-02] MEDS ORDERED: ISOSORBIDE MONONITRATE 30 MG TAB PO SCH (10:00)
[2025-02-02] MEDS ORDERED: EMPAGLIFLOZIN 10 MG TABLET PO SCH (10:00)
[2025-02-02] MEDS ORDERED: ASPIRIN ENTERIC COATED 81 MG TAB PO SCH (10:00)
[2025-02-02] MEDS ORDERED: METOPROLOL SUCCINATE XR 100 MG TAB PO SCH (10:00)
[2025-02-02 12:00] VITALS: BP 134/65
[2025-02-02 16:00] VITALS: BP 135/74
[2025-02-02 20:00] VITALS: BP 131/81
[2025-02-03] VITALS: BP 126/63
[2025-02-03 05:54] LABS: BUN 8 mg/dl (9-23)
[2025-02-03] MEDS ORDERED: POTASSIUM CHLORIDE 20 MEQ TAB PO ONE (07:45)
[2025-02-03 08:00] VITALS: BP 145/75
[2025-02-03 12:00] VITALS: BP 131/67
[2025-02-03 16:00] VITALS: BP 124/60
[2025-02-03 20:00] VITALS: BP 133/74
[2025-02-04] VITALS: BP 129/70
[2025-02-04 05:43] LABS: BUN 9 mg/dl (9-23)
[2025-02-04 08:00] VITALS: BP 129/59
[2025-02-04 12:00] VITALS: BP 137/76
[2025-02-04] MEDS ORDERED: MUCUS RELIEF E600 MG PO (14:18)
[2025-02-04] MEDS ORDERED: VIBRA-TAB100 MG PO (14:18)
== END 2025-02-04 15:26 | disposition home or self-care (01) | DRG 139 ==
LOC: ED 10:46 → EDHOLD 16:11 → 4E 16:11
PROVIDERS: Student in an Organized Health Care Education/Training Program; ADMIT Internal Medicine; ATTEND Internal Medicine
DX: J15.9 Unspecified bacterial pneumonia (principal); D64.9 Anemia, unspecified; F33.2 Major depressive disorder, recurrent severe without psychotic features; E43 Unspecified severe protein-calorie malnutrition; J91.8 Pleural effusion in other conditions classified elsewhere; E87.6 Hypokalemia; Z20.822 Contact with and (suspected) exposure to COVID-19; I50.22 Chronic systolic (congestive) heart failure; I25.10 Atherosclerotic heart disease of native coronary artery without angina pectoris; F43.21 Adjustment disorder with depressed mood; N18.30 Chronic kidney disease, stage 3 unspecified; J44.0 Chronic obstructive pulmonary disease with (acute) lower respiratory infection; K57.30 Diverticulosis of large intestine without perforation or abscess without bleeding; F41.1 Generalized anxiety disorder; K21.9 Gastro-esophageal reflux disease without esophagitis; E78.5 Hyperlipidemia, unspecified; I13.0 Hypertensive heart and chronic kidney disease with heart failure and stage 1 through stage 4 chronic kidney disease, or unspecified chronic kidney disease; Z79.899 Other long term (current) drug therapy; Z79.01 Long term (current) use of anticoagulants; Z79.2 Long term (current) use of antibiotics; Z79.82 Long term (current) use of aspirin; Z90.49 Acquired absence of other specified parts of digestive tract; Z87.891 Personal history of nicotine dependence; Z82.49 Family history of ischemic heart disease and other diseases of the circulatory system; Z82.3 Family history of stroke; Z83.3 Family history of diabetes mellitus; Z80.3 Family history of malignant neoplasm of breast; Z68.27 Body mass index [BMI] 27.0-27.9, adult